=== PATIENT | female | born 1985 | race Caucasian/White ===

== ENCOUNTER 2021-05-13 14:45 | Emergency (ER) | payer SELFPAY ==
[2021-05-13] VITALS (8 sets, daily range): BP systolic 134–137; BP diastolic 77–81; PULSE 90–108; RESP 18; TEMP 37.1; O2SAT 90–98
[2021-05-13 15:21] LABS: Add Manual Diff / Slide Review NO; Basophils Absolute Auto 0 /uL (0-100); Basophils Percent Auto 0.2 % (0-2); Eosinophils Absolute Auto 300 /uL (0-450); Eosinophils Percent Auto 3.2 % (2-4); Hematocrit 48.7 % (36-46); Hemoglobin 16.6 g/dL (12.0-16.0); Lymphocytes Absolute Auto 3300 /uL (1100-4500); Lymphocytes Percent Auto 32.5 % (25-40); Mean Corpuscular HGB Conc 34.1 % (30-36); Mean Corpuscular Hemoglobin 30.6 PG (26-34); Mean Corpuscular Volume 89.8 fL (80-100); Monocytes Absolute Auto 600 /uL (0-900); Monocytes Percent Auto 6.2 % (3-14); Neutrophils Absolute Auto 5900 /uL (1500-7000); Neutrophils Percent Auto 57.9 % (50-75); Platelet Count 315 X10^3/uL (150-400); Red Blood Cell Count 5.42 X10^6/uL (4.0-5.2); Red Cell Distribution Width 13.1 % (11.6-14.8); White Blood Cell Count 10.3 X10^3/uL (4.5-11.0)
[2021-05-13 15:26] LABS: Alanine Aminotransferase 56 IU/L (<35); Albumin 4.3 g/dL (3.5-5.0); Albumin Globulin Ratio 1.4 (1.0-2.8); Alkaline Phosphatase 99 U/L (38-126); Aspartate Aminotransferase 52 IU/L (14-36); BUN Creatinine Ratio 11.8 (6-22); Bilirubin Total 0.4 mg/dL (0.2-1.3); Blood Urea Nitrogen 13 mg/dL (7-17); Calcium 9.8 mg/dL (8.4-10.2); Carbon Dioxide 28 mmol/L (22-32); Chloride 105 mmol/L (98-107); Estimated Glomerular Filt Rate 56.5 mL/min (>60); Glucose 89 mg/dL (70-100); HEMOLYSIS < 15 (0-50); Lipase 84 U/L (23-300); Potassium 4.3 mmol/L (3.4-5.1); Sodium 139 mmol/L (137-145); Total Protein 7.3 g/dL (6.3-8.2)
[2021-05-13 18:37] LABS: RBC Urine None Seen (0-5/HPF)
[2021-05-13 18:40] LABS: Bilirubin Urine UA NEGATIVE (NEGATIVE); Color Urine UA YELLOW; Glucose Urine UA NEGATIVE (Negative); Ketones Urine UA NEGATIVE (NEGATIVE); Leukocyte Esterase Urine UA NEGATIVE (NEGATIVE); Nitrite Urine UA POSITIVE (Negative); Occult Blood Urine UA NEGATIVE (Negative); Protein Urine UA NEGATIVE (Negative); Urobilinogen Urine UA 0.2 E.U./dL (0.2)
[2021-05-13 18:51] LABS: Appearance Urine UA Slightly Cloudy; Bacteria Urine Many (>30); Squamous Epithelial Cell Urine 1-5 /HPF (0-5/HPF); WBC Urine 1-5/HPF (0-5/HPF); pH Urine UA 6.5 (4.5-8.0)
[2021-05-13 18:52] LABS: Culture Indicated Urine Specimen Cultured
--- NOTE | 2021-05-13 19:30 | DI.RAD.S_ITS ---
PROCEDURE: XR CHEST 2V INDICATIONS: pleuritic/rib pain TECHNIQUE: 2 views of the chest were acquired. COMPARISON: None. FINDINGS: Surgical changes and devices: None. Lungs and pleura: There is mild elevation of the left hemidiaphragm. No focal consolidation. No pleural effusions or pneumothorax. Mediastinum: Mediastinal contours are normal. Heart size is normal. Bones and chest wall: No displaced rib fracture identified. No suspicious bony abnormalities. Soft tissues appear unremarkable. IMPRESSION: 1. No definite acute cardiopulmonary disease. Dictated by: Cody Vences M.D. on 05/13/2021 at 20:22 Approved by: Cody Vences M.D. on 05/13/2021 at 20:23
--- NOTE | 2021-05-13 20:19 | ED.ABDPAIN ---
HPI - Abdominal Pain General Chief Complaint: Abdominal Pain Stated Complaint: around back of waist hurts Time Seen by Provider: 05/13/21 20:18 Source: patient and family Mode of arrival: Ambulatory Limitations: no limitations History of Present Illness HPI narrative: This is a 35-year-old female who denies any past medical history. Patient has had cholecystectomy, appendectomy as well as tonsils and adenoids removed in the past. Patient states she has had increasing back/flank pain over the last 1-2 days. Patient states she does have 2, 50 lb puppies which she has been her angling him picking up frequently. She does not recall any exact injury. She does not have any radiation, no bowel or bladder symptoms. She has not had back issues in the past. She denies any fevers or chills. She denies any shortness of breath. Patient has had some mild nausea but no vomiting. She states her pain starts in her back and radiates about the mid lateral area. She denies any diarrhea constipation. She denies any urinary symptoms such as frequency dysuria urgency. No black or bloody stools. No vaginal bleeding or discharge. Patient has not taken any medications. She does have an allergy to penicillin and cephalosporins and states she gets hives and sometimes her throat feels tight and itchy. She has not established with a primary care physician yet she has recently moved here from [place]. Related Data Previous Rx's Medication Instructions Recorded ciprofloxacin HCl 500 mg tablet 500 mg PO Q12H #20 tab 05/13/21 meloxicam 7.5 mg tablet (Mobic) 7.5 mg PO BID #14 tab 05/13/21 ondansetron HCl 4 mg tablet 4 mg PO Q6H #5 tab 05/13/21 (Zofran) Allergies Allergy/AdvReac Type Severity Reaction Status Date / Time Penicillins Allergy Verified 05/13/21 14:56 Review of Systems Review of Systems ROS Unobtainable: All systems reviewed & are unremarkable except as noted in HPI and below Patient History Social History Smoking Status: Current every day smoker Smoking Status: Current every day smoker tobacco type: cigarettes Exam Narrative Exam Narrative: GENERAL: Alert and oriented x three, female in mild distress. HEENT: Head normocephalic, atraumatic, EOMI, pupils reactive, face symmetric, moist mucous membranes NECK: Supple, full range of motion CARDIOVASCULAR: Regular rate and rhythm without murmurs, rubs or gallops. RESPIRATORY: Breath sounds equal bilaterally, no wheezes rales or rhonchi. ABDOMEN: Soft, nontender. Normoactive bowel sounds all 4 quadrants. No guarding or rebound, rigidity, no mass : No CVA tenderness BACK: No cervical, thoracic or lumbar vertebral point tenderness. Patient has normal range of motion. Muscle strength is 5/5 in lower extremities, sensation intact bilaterally. EXTREMITIES: Normal range of motion, no clubbing or edema. Neurovascularly intact NEUROLOGICAL: Cranial nerves II through XII grossly intact. Moving all extremities SKIN: Warm, dry, no petechiae, no rashes or lesions. Initial Vital Signs Initial Vital Signs: Vital Signs Temperature 98.7 F 05/13/21 14:54 Pulse Rate 108 H 05/13/21 14:54 Respiratory Rate 18 05/13/21 14:54 Blood Pressure 137/77 05/13/21 14:54 Pulse Oximetry 98 05/13/21 14:54 Course Orders Ordered: Discontinued Medications Ciprofloxacin (Ciprofloxacin 250 Mg Tablet) 500 mg PO NOW ONE Stop: 05/13/21 20:32 Last Admin: 05/13/21 21:00 Dose: 500 mg Documented by: HOLA Ketorolac Tromethamine (Ketorolac 30 Mg/Ml Vial) 15 mg IV NOW ONE Stop: 05/13/21 20:32 Last Admin: 05/13/21 21:00 Dose: 15 mg Documented by: HOLA Ondansetron HCl (Ondansetron 4 Mg/2 Ml Inj) 4 mg IV NOW ONE Stop: 05/13/21 20:32 Last Admin: 05/13/21 21:00 Dose: 4 mg Documented by: HOLA Vital Signs Vital signs: Vital Signs - 8 hr 05/13/21 14:54 Temperature 98.7 F Pulse Rate 108 H Respiratory Rate 18 Blood Pressure 137/77 Pulse Oximetry 98 MDM - Abdominal Pain Lab Data Result diagrams: 05/13/21 15:05 05/13/21 15:05 Labs: Lab Results 05/13/21 05/13/21 05/13/21 Range/Units 15:05 15:05 15:05 WBC 10.3 (4.5-11.0) X10^3/uL RBC 5.42 H (4.0-5.2) X10^6/uL Hgb 16.6 H (12.0-16.0) g/dL Hct 48.7 H (36-46) % MCV 89.8 (80-100) fL MCH 30.6 (26-34) PG MCHC 34.1 (30-36) % RDW 13.1 (11.6-14.8) % Plt Count 315 (150-400) X10^3/uL Neut % (Auto) 57.9 (50-75) % Lymph % (Auto) 32.5 (25-40) % [place] % (Auto) 6.2 (3-14) % Eos % (Auto) 3.2 (2-4) % Baso % (Auto) 0.2 (0-2) % Neut # (Auto) 5900 (5576-0642) /uL Lymph # (Auto) 3300 (1565-2384) /uL Charlotte # (Auto) 600 (0-900) /uL Eos # (Auto) 300 (0-450) /uL Baso # (Auto) 0 (0-100) /uL Sodium 139 (137-145) mmol/L Potassium 4.3 (3.4-5.1) mmol/L Chloride 105 (98-107) mmol/L Carbon Dioxide 28 (22-32) mmol/L BUN 13 (7-17) mg/dL Creatinine 1.10 H (0.52-1.04) mg/dL Estimated GFR 56.5 L (>60) mL/min BUN/Creatinine Ratio 11.8 (6-22) Glucose 89 (70-100) mg/dL Calcium 9.8 (8.4-10.2) mg/dL Total Bilirubin 0.4 (0.2-1.3) mg/dL AST 52 H (14-36) IU/L ALT 56 H (<35) IU/L Alkaline Phosphatase 99 (38-126) U/L Total Protein 7.3 (6.3-8.2) g/dL Albumin 4.3 (3.5-5.0) g/dL Globulin 3.0 (1.7-4.1) g/dL Albumin/Globulin Ratio 1.4 (1.0-2.8) Lipase 84 (23-300) U/L Serum , Qual Negative (Negative) Urine Color Urine Appearance Urine pH (4.5-8.0) Ur Specific [place] (1.000-1.035) Urine Protein (Negative) Urine Glucose (UA) (Negative) g/dL Urine Ketones (NEGATIVE) Urine Occult Blood (Negative) Urine Nitrate (Negative) Urine Bilirubin (NEGATIVE) Urine Urobilinogen (0.2) E.U./dL Ur Leukocyte Esterase (NEGATIVE) Urine RBC (0-5/HPF) Urine WBC (0-5/HPF) Ur Squamous Epith Cells (0-5/HPF) Urine Bacteria (None) Ur Culture Indicated? 05/13/21 Range/Units 18:36 WBC (4.5-11.0) X10^3/uL RBC (4.0-5.2) X10^6/uL Hgb (12.0-16.0) g/dL Hct (36-46) % MCV (80-100) fL MCH (26-34) PG MCHC (30-36) % RDW (11.6-14.8) % Plt Count (150-400) X10^3/uL Neut % (Auto) (50-75) % Lymph % (Auto) (25-40) % Charlotte % (Auto) (3-14) % Eos % (Auto) (2-4) % Baso % (Auto) (0-2) % Neut # (Auto) (1783-6295) /uL Lymph # (Auto) (2777-2526) /uL Charlotte # (Auto) (0-900) /uL Eos # (Auto) (0-450) /uL Baso # (Auto) (0-100) /uL Sodium (137-145) mmol/L Potassium (3.4-5.1) mmol/L Chloride (98-107) mmol/L Carbon Dioxide (22-32) mmol/L BUN (7-17) mg/dL Creatinine (0.52-1.04) mg/dL Estimated GFR (>60) mL/min BUN/Creatinine Ratio (6-22) Glucose (70-100) mg/dL Calcium (8.4-10.2) mg/dL Total Bilirubin (0.2-1.3) mg/dL AST (14-36) IU/L ALT (<35) IU/L Alkaline Phosphatase (38-126) U/L Total Protein (6.3-8.2) g/dL Albumin (3.5-5.0) g/dL Globulin (1.7-4.1) g/dL Albumin/Globulin Ratio (1.0-2.8) Lipase (23-300) U/L Serum , Qual (Negative) Urine Color Yellow Urine Appearance Slightly cloudy Urine pH 6.5 (4.5-8.0) Ur Specific [place] 1.010 (1.000-1.035) Urine Protein Negative (Negative) Urine Glucose (UA) Negative (Negative) g/dL Urine Ketones Negative (NEGATIVE) Urine Occult Blood Negative (Negative) Urine Nitrate Positive H (Negative) Urine Bilirubin Negative (NEGATIVE) Urine Urobilinogen 0.2 (0.2) E.U./dL Ur Leukocyte Esterase Negative (NEGATIVE) Urine RBC None seen (0-5/HPF) Urine WBC 1-5/hpf (0-5/HPF) Ur Squamous Epith Cells 1-5 /hpf (0-5/HPF) Urine Bacteria Many (>30) H (None) Ur Culture Indicated? Specimen cultured Imaging Data Chest x-ray: Radiologist's Impression: Steffany Cisneros 35 F [address] [id number] ReportSigned Patient: Kenton Cisneros#: [id number]: 1985Acct:[id number]/Sex: 35 / FDate of Service: 05/13/21Loc: EDAccession Number: [id number] Procedure: XR chest 2V Ordering Provider: Rayne Freeman D.O. PROCEDURE: XR CHEST 2V INDICATIONS: pleuritic/rib pain TECHNIQUE: 2 views of the chest were acquired. COMPARISON: None. FINDINGS: Surgical changes and devices: None. Lungs and pleura: There is mild elevation of the left hemidiaphragm. No focal consolidation. No pleural effusions or pneumothorax. Mediastinum: Mediastinal contours are normal. Heart size is normal. Bones and chest wall: No displaced rib fracture identified. No suspicious bony abnormalities. Soft tissues appear unremarkable. IMPRESSION: 1. No definite acute cardiopulmonary disease. Dictated by: Cody Vences M.D. on 05/13/2021 at 20:22 Approved by: Cody Vences M.D. on 05/13/2021 at 20:23 [facility] Narrative Medical decision making narrative: Patient comes in with complaint of back discomfort coming around the sides. Patient has nitrate positive urine could have pyelonephritis but she is also been handling to fairly heavy dogs regularly. Patient has not had any urinary symptoms, no fevers or chills but dog covered with antibiotics. Patient was offered a prescription for some pain medication. She does not have any red flag symptoms in terms of back pain. Labs do show an elevated creatinine, AST ALT are slightly elevated. Patient does not have any anterior abdominal pain on evaluation. Discharge Plan Departure Patient Disposition: Home Clinical Impression: Pyelonephritis Instructions: DI for Kidney Infection Activity Restrictions/Additional Instructions: Follow-up in the next 2-3 days for recheck if you are not having any improvement in her symptoms. Your urinalysis today is very suspicious for infection I suspect you have either UTI or the beginnings of pyelonephritis which is a kidney infection. Take antibiotics until completely gone. You may take Zofran 1 tablet every 4 hours as needed for nausea. Take pain medication as prescribed. Prescription sent to [facility] in [place] Please return for fevers, lightheadedness or passing out, new or worsening chest pain or shortness of breath, persistent vomiting, black or bloody stools, worsening abdominal, back or flank pain, inability urinate or other new or concerning symptoms. Prescriptions: New ondansetron HCl [Zofran] 4 mg tablet 4 mg PO Q6H Qty: 5 RF: 0 meloxicam [Mobic] 7.5 mg tablet 7.5 mg PO BID Qty: 14 RF: 0 ciprofloxacin HCl 500 mg tablet 500 mg PO Q12H Qty: 20 RF: 0
[2021-05-13 20:37] LABS: Pregnancy Test Serum,Qual Negative (Negative)
[2021-05-13] MEDS: ONDANSETRON 4 MG/2 ML INJ IV (21:00)
[2021-05-13] MEDS: CIPROFLOXACIN 250 MG TABLET 500 MG PO (21:00)
[2021-05-13] MEDS: KETOROLAC 30 MG/ML VIAL 15 MG IV (21:00)
== END 2021-05-13 21:11 | disposition home or self-care (01) ==
PROVIDERS: Emergency Medicine; Emergency Provider Emergency Medicine
DX: N12 Tubulo-interstitial nephritis, not specified as acute or chronic (principal); R07.81 Pleurodynia
CPT/HCPCS: 36415; 71046; 80053; 81001; 83690; 84703; 85025; 87077; 87086; 87186; 96374; 96375; 99284; J1885; J2405

== ENCOUNTER 2021-05-28 14:18 | Emergency (ER) | payer OTHER, MEDICAID, SELFPAY ==
[2021-05-28 14:26] VITALS: BP 112/59; PULSE 102; RESP 20; TEMP 36.6; O2SAT 95
--- NOTE | 2021-05-28 14:29 | DI.RAD.S_ITS ---
PROCEDURE: XR KNEE LT 3V INDICATIONS: twisting injury TECHNIQUE: Three views. COMPARISON: None. FINDINGS: Bones: No fractures or dislocations. No suspicious bony lesions. Moderate knee joint space narrowing. No effusion or loose body. Soft tissues: No joint effusion. No suspicious soft tissue calcifications. IMPRESSION: Internal derangement may be present but no fracture is seen. Dictated by: Wilber Saucedo M.D. on 05/28/2021 at 14:59 Approved by: Wilber Saucedo M.D. on 05/28/2021 at 15:06
--- NOTE | 2021-05-28 17:51 | ED.LOWEXIN ---
HPI - Extremity Injury (Lower) <Keo Pierce PA-C - Last Filed: 05/29/21 18:47> General Chief Complaint: Extremity Injury, Lower Stated Complaint: left knee pain Time Seen by Provider: 05/28/21 17:49 Source: patient Mode of arrival: Wheelchair History of Present Illness HPI Narrative: Steffany presents with chief complaint of left knee pain. She reports that this started yesterday while she was walking in the yard. She stepped wrong in a hole in her yd that her dog back and had initial minimal pain. Her pain was manageable but then later on in the day she stepped off a curb while at the grocery store and felt a pop and had pain again. She denies any previous injuries to the area. She reports pain is made worse with walking on the leg. Nothing seems to make it better. She denies any significant chest pain, shortness of breath, fever or any other acute concerns or complaints at this time. Related Data Previous Rx's Medication Instructions Recorded ciprofloxacin HCl 500 mg tablet 500 mg PO Q12H #20 tab 05/13/21 meloxicam 7.5 mg tablet (Mobic) 7.5 mg PO BID #14 tab 05/13/21 ondansetron HCl 4 mg tablet 4 mg PO Q6H #5 tab 05/13/21 (Zofran) Allergies Allergy/AdvReac Type Severity Reaction Status Date / Time Penicillins Allergy Verified 05/13/21 14:56 Review of Systems <Keo Pierce PA-C - Last Filed: 05/29/21 18:47> Review of Systems Narrative: As per HPI Patient History <Keo Pierce PA-C - Last Filed: 05/29/21 18:47> Social History Smoking Status: Current every day smoker Smoking Status: Current every day smoker tobacco type: cigarettes Exam <Keo Pierce PA-C - Last Filed: 05/29/21 18:47> Narrative Exam Narrative: Exam Narrative: Const General: cooperative, healthy appearing, comfortable, no acute distress, well developed and well groomed Nutritional Appearance: average body habitus Orientation: alert and oriented x3 HENMT Head: normal to inspection and atraumatic Ears: hearing grossly normal bilaterally Nose: external nose normal and nares normal Face and sinus: normal facial exam Neck Neck: normal visual inspection and supple Resp Effort & Inspection: normal respiratory effort, able to speak in complete sentences, no audible wheezes, not labored, no nasal flaring and no respiratory distress Neuro General: alert, oriented x3, gait normal, tone normal and moves all extremities Cognition: normal cognition Speech: speech normal Extremities Lower extremities exposed. Grossly normal in appearance with no obvious swelling, ecchymosis, erythema. No calf tenderness. Negative Homans sign. Mild lateral joint line tenderness to the left knee. Full range of motion. Full strength. Distal sensation is intact. Pedal pulses are equal bilaterally. Psych Appearance: grossly normal and well kempt Mental Status: mental status grossly normal Speech and Movement: speech and movement normal Mood: congruent mood Affect: normal affect Initial Vital Signs Initial Vital Signs: Vital Signs Temperature 97.8 F 05/28/21 14:26 Pulse Rate 102 H 05/28/21 14:26 Respiratory Rate 20 05/28/21 14:26 Blood Pressure 112/59 L 05/28/21 14:26 Pulse Oximetry 95 05/28/21 14:26 <DO Samuel Yan Last Filed: 06/01/21 02:50> Initial Vital Signs Initial Vital Signs: Vital Signs Temperature 97.8 F 05/28/21 14:26 Pulse Rate 102 H 05/28/21 14:26 Respiratory Rate 20 05/28/21 14:26 Blood Pressure 112/59 L 05/28/21 14:26 Pulse Oximetry 95 05/28/21 14:26 Course <Keo Pierce PA-C - Last Filed: 05/29/21 18:47> Orders Ordered: Discontinued Medications Ketorolac Tromethamine (Ketorolac 30 Mg/Ml Vial) 30 mg IM NOW ONE Stop: 05/28/21 18:00 Last Admin: 05/28/21 18:37 Dose: 30 mg Documented by: HIRAM Vital Signs Vital signs: Vital Signs - 8 hr 05/28/21 14:26 Temperature 97.8 F Pulse Rate 102 H Respiratory Rate 20 Blood Pressure 112/59 L Pulse Oximetry 95 <DO Samuel Yan Last Filed: 06/01/21 02:50> Orders Ordered: Discontinued Medications Ketorolac Tromethamine (Ketorolac 30 Mg/Ml Vial) 30 mg IM NOW ONE Stop: 05/28/21 18:00 Last Admin: 05/28/21 18:37 Dose: 30 mg Documented by: HIRAM Vital Signs Vital signs: Vital Signs - 8 hr 05/28/21 14:26 Temperature 97.8 F Pulse Rate 102 H Respiratory Rate 20 Blood Pressure 112/59 L Pulse Oximetry 95 MDM - Extremity Injury (Lower) <Keo Pierce PA-C - Last Filed: 05/29/21 18:47> [facility] Narrative Medical decision making narrative: Differential diagnosis considered includes fracture, patellar dislocation, sprain, meniscus injury, Achilles rupture. Patient's physical examination is essentially normal. There is no obvious ecchymosis, swelling or erythema. She has intact range of motion. No obvious bony tenderness and x-ray does not suggest any fracture or dislocation. No significant joint effusion was noted on x-ray. She does not have any calf tenderness, pedal edema, and she has negative Homans sign. We will treat as a sprain/strain and have her follow-up with PCP if symptoms fail to improve as expected. Return precautions were discussed. Patient verbalizes understanding and agrees to plan and has no further concerns at this time. Thank you A [id number] system was used with the dictation of this note. Please disregard any spelling or grammatical errors. Discharge Plan Departure Patient Disposition: Home Clinical Impression: Acute knee pain Instructions: DI for Knee Sprain Activity Restrictions/Additional Instructions: It was nice to meet you this evening. Please apply ice, do light range of motion activity as tolerated, elevate, and use nonsteroidal anti-inflammatories or acetaminophen as needed for pain management. Please follow-up with your primary care provider or the clinic if you are still having significant symptoms in 10-14 days. At that time a referral to physical therapy or an MRI may be warranted. Thank you Keo Pierce PAC Prescriptions: No Action ondansetron HCl [Zofran] 4 mg tablet 4 mg PO Q6H Qty: 5 RF: 0 meloxicam [Mobic] 7.5 mg tablet 7.5 mg PO BID Qty: 14 RF: 0 ciprofloxacin HCl 500 mg tablet 500 mg PO Q12H Qty: 20 RF: 0 <Rayne Freeman DO - Last Filed: 06/01/21 02:50> Cosign ED Attending Cosignature Attestation: I was immediately available in the department for consultation. Documentation has been reviewed.
[2021-05-28 18:20] VITALS: BP 130/61; PULSE 87; O2SAT 98
[2021-05-28] MEDS: KETOROLAC 30 MG/ML VIAL IM (18:37)
== END 2021-05-28 18:51 | disposition home or self-care (01) ==
PROVIDERS: Emergency Provider Physician Assistant
DX: M25.562 Pain in left knee (principal)
CPT/HCPCS: 73562; 96372; 99283; 99284; J1885

== ENCOUNTER 2021-06-09 12:46 | Emergency (ER) | payer OTHER, MEDICAID, SELFPAY ==
[2021-06-09 13:20] VITALS: BP 153/86; PULSE 94; RESP 17; TEMP 36.6; O2SAT 98; BMI 50.8
--- NOTE | 2021-06-09 13:20 | DI.RAD.S_ITS ---
PROCEDURE: XR CHEST 2V INDICATIONS: cough TECHNIQUE: 2 views of the chest were acquired. COMPARISON: [facility], CR, XR CHEST 2V, 05/13/2021, 19:33. FINDINGS: Surgical changes and devices: None. Lungs and pleura: Scattered subsegmental atelectasis and/or scarring. No focal consolidation. Mediastinum: Mediastinal contours are normal. Heart size is normal. Bones and chest wall: No suspicious bony abnormalities. Soft tissues appear unremarkable. IMPRESSION: Scattered atelectatic opacities. No definite interval change since 05/13/21. Dictated by: Saman Gunter M.D. on 06/09/2021 at 13:42 Approved by: Saman Gunter M.D. on 06/09/2021 at 13:47
[2021-06-09 14:07] LABS: COVID19 -Nasal RAPID Negative (Negative)
[2021-06-09 15:03] VITALS: BP 130/70; PULSE 90; TEMP 36.3; O2SAT 98
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
== END 2021-06-09 15:20 | disposition home or self-care (01) ==
PROVIDERS: Emergency Provider Emergency Medicine
DX: J40 Bronchitis, not specified as acute or chronic (principal); R09.81 Nasal congestion; Z20.822 Contact with and (suspected) exposure to COVID-19
CPT/HCPCS: 71046; 87635; 99282; 99283; C9803

== ENCOUNTER 2021-06-30 16:21 | Emergency (ER) | payer OTHER, MEDICAID, SELFPAY ==
[2021-06-30 16:40] VITALS: BP 126/56; PULSE 92; RESP 16; TEMP 36.8; O2SAT 97
--- NOTE | 2021-06-30 16:57 | DI.RAD.S_ITS ---
PROCEDURE: XR CHEST 2V INDICATIONS: flank pain TECHNIQUE: 2 views of the chest were acquired. COMPARISON: [facility], CR, XR CHEST 2V, 06/09/2021, 13:24. FINDINGS: Surgical changes and devices: None. Lungs and pleura: Lungs are clear. No pleural effusions or pneumothorax. Mediastinum: Mediastinal contours are normal. Heart size is normal. Bones and chest wall: No suspicious bony abnormalities. Premature bony degenerative changes are seen. Accentuated thoracic kyphosis is seen. Soft tissues appear unremarkable. IMPRESSION: No acute cardiopulmonary process is seen. Dictated by: Benny Mcguire M.D. on 06/30/2021 at 16:37 Approved by: Benny Mcguire M.D. on 06/30/2021 at 16:38
[2021-06-30 17:06] LABS: Add Manual Diff / Slide Review NO; Basophils Absolute Auto 200 /uL (0-100); Basophils Percent Auto 1.3 % (0-2); Eosinophils Absolute Auto 400 /uL (0-450); Eosinophils Percent Auto 3.8 % (2-4); Hematocrit 45.7 % (36-46); Hemoglobin 15.4 g/dL (12.0-16.0); Lymphocytes Absolute Auto 3200 /uL (1100-4500); Lymphocytes Percent Auto 28.8 % (25-40); Mean Corpuscular HGB Conc 33.8 % (30-36); Mean Corpuscular Hemoglobin 30.1 PG (26-34); Mean Corpuscular Volume 89.2 fL (80-100); Monocytes Absolute Auto 800 /uL (0-900); Monocytes Percent Auto 7.4 % (3-14); Neutrophils Absolute Auto 6600 /uL (1500-7000); Neutrophils Percent Auto 58.7 % (50-75); Platelet Count 335 X10^3/uL (150-400); Red Blood Cell Count 5.13 X10^6/uL (4.0-5.2); Red Cell Distribution Width 13.3 % (11.6-14.8); White Blood Cell Count 11.2 X10^3/uL (4.5-11.0)
[2021-06-30 17:08] LABS: Alanine Aminotransferase 34 IU/L (<35); Albumin 4.1 g/dL (3.5-5.0); Albumin Globulin Ratio 1.3 (1.0-2.8); Alkaline Phosphatase 95 U/L (38-126); Aspartate Aminotransferase 31 IU/L (14-36); BUN Creatinine Ratio 12.7 (6-22); Bilirubin Total 0.4 mg/dL (0.2-1.3); Blood Urea Nitrogen 13 mg/dL (7-17); Calcium 9.7 mg/dL (8.4-10.2); Carbon Dioxide 28 mmol/L (22-32); Chloride 105 mmol/L (98-107); Estimated Glomerular Filt Rate > 60.0 mL/min (>60); Globulin 3.1 g/dL (1.7-4.1); Glucose 89 mg/dL (70-100); HEMOLYSIS < 15 (0-50); Lipase 71 U/L (23-300); Potassium 3.8 mmol/L (3.4-5.1); Sodium 139 mmol/L (137-145); Total Protein 7.2 g/dL (6.3-8.2)
[2021-06-30 17:36] LABS: RBC Urine None Seen (0-5/HPF)
[2021-06-30 17:43] LABS: Squamous Epithelial Cell Urine 1-5 /HPF (0-5/HPF); WBC Urine 0-1/HPF (0-5/HPF)
[2021-06-30 17:44] LABS: Bacteria Urine Occasional (0-1); Culture Indicated Urine Cult Not Indicated
== END 2021-06-30 20:06 | disposition left against medical advice (07) ==
PROVIDERS: Emergency Medicine; Emergency Provider Emergency Medicine
DX: R10.9 Unspecified abdominal pain (principal); R11.0 Nausea
CPT/HCPCS: 71046; 80053; 81003; 81015; 81025; 83690; 85025; 99283

== ENCOUNTER 2021-07-12 14:28 | Emergency (ER) | payer OTHER, MEDICAID, SELFPAY ==
[2021-07-12 14:30] VITALS: BP 124/67; PULSE 89; RESP 16; TEMP 36.6; O2SAT 96; BMI 51.7
--- NOTE | 2021-07-12 14:40 | ED_ITS ---
HPI - General Adult General Chief complaint: Upper Respiratory Symptoms Stated complaint: BODY ACHES, COUGH, HEADACHE Time Seen by Provider: 07/12/21 14:31 Source: patient Mode of arrival: Ambulatory History of Present Illness HPI narrative: Patient is a 36-year-old female who is immunized against COVID-19 who has had approximately 10 days of sinus congestion and cough and a sore throat and body aches and a slight headache. No fevers. Has tried some [id number] medications without much improvement. Related Data Home Medications Medication Instructions Recorded Confirmed citalopram 20 mg tablet 20 mg PO DAILY 06/09/21 06/09/21 lamotrigine 200 mg tablet 200 mg PO DAILY 06/09/21 06/09/21 aripiprazole 2 mg tablet (Abilify) 2 mg PO DAILY 07/12/21 07/12/21 buspirone 5 mg tablet 5 mg PO BID 07/12/21 07/12/21 cyclobenzaprine 10 mg tablet 10 mg PO DAILY 07/12/21 07/12/21 levonorgestrel 14 mcg/24 hrs (3 INTRAUTERINE 07/12/21 yrs) 13.5 mg intrauterine device (Sachi) Allergies Allergy/AdvReac Type Severity Reaction Status Date / Time amoxicillin Allergy Severe Anaphylaxis Verified 07/12/21 14:54 Penicillins Allergy Severe Anaphylaxis Verified 07/12/21 14:54 Review of Systems Constitutional Constitutional: Reports fatigue, Denies fever(s), Reports headache(s) and Reports lethargy Eyes Eyes: Reports as per HPI ENT Ears, Nose, Mouth, and Throat: Reports headache(s), Reports sinus pressure and Reports sore throat Cardiovascular Cardiovascular: Reports as per HPI and Reports system reviewed and no additional complaints, except as documented Respiratory Respiratory: Reports cough Gastrointestinal Gastrointestinal: Reports system reviewed and no additional complaints, except as documented Musculoskeletal Musculoskeletal: Reports system reviewed and no additional complaints, except as documented Integumentary/Breasts Skin/Breast: Reports system reviewed and no additional complaints, except as documented Neurologic Neurologic: Reports headache(s) Endocrine Endocrine: Reports fatigue Hematologic/Lymphatic On Anticoagulants: No Patient History Medical History Acute knee pain Social History Smoking Status: Current every day smoker Smoking Status: Current every day smoker tobacco type: cigarettes Substance Use Type: marijuana Exam Initial Vital Signs Initial Vital Signs: Vital Signs Temperature 97.9 F 07/12/21 14:30 Pulse Rate 89 07/12/21 14:30 Respiratory Rate 16 07/12/21 14:30 Blood Pressure 124/67 07/12/21 14:30 Pulse Oximetry 96 07/12/21 14:30 Const General: cooperative and comfortable HENMT Head: normal to inspection and normocephalic Eyes General: appearance normal, both eyes and all related structures Resp Effort & Inspection: normal respiratory effort Auscultation: clear to auscultation bilaterally Cardio Rate: regular rate GI Inspection: normal to inspection Skin General: no rashes or lesions noted Neuro General: patient alert, patient awake, patient oriented x3 and moves all extremities Extrem General: normal to inspection and capillary refill normal Psych Appearance: grossly normal and well kempt Course Orders Ordered: ED Orders 07/12/21 14:47 COVID19 -Nasal swab/Pre-Proc Stat Vital Signs Vital signs: Vital Signs - 8 hr 07/12/21 14:30 Temperature 97.9 F Pulse Rate 89 Respiratory Rate 16 Blood Pressure 124/67 Pulse Oximetry 96 Medical Decision Making Lab Data Labs: Lab Results 07/12/21 Range/Units 14:47 SARS-CoV-2 (PCR) Negative (Negative) MDM Narrative Medical decision making narrative: Patient's lungs are clear. Her COVID is negative. She is afebrile. Not hypoxic. No indication for chest x-ray. I did discuss with her her symptoms. The individual whom with she lives is also here in the emergency department and he tested positive for COVID-19. They were in the same room together when we had the discussion about his positive result. I did discuss with her her risks of COVID-19. We did discuss quarantine herself. Discussed return precautions and follow-up instructions. She expressed underst anding and agreement. Discharge Plan Departure Patient Disposition: Home Clinical Impression: Upper respiratory infection Instructions: Can COVID-19 be prevented? Activity Restrictions/Additional Instructions: Your COVID-19 test today was negative. This is most likely because you are immunized. However given the fact that you are in close proximity with someone who is positive you do need to quarantine yourself for the next 14 days. Contact her primary doctor for follow-up. Return to the emergency department for any new or worsening symptoms Prescriptions: No Action cyclobenzaprine 10 mg tablet 10 mg PO DAILY RF: 0 buspirone 5 mg tablet 5 mg PO BID RF: 0 aripiprazole [Abilify] 2 mg tablet 2 mg PO DAILY RF: 0 Sachi 14 mcg/24 hrs (3 yrs) 13.5 mg intrauterine device INTRAUTERINE RF: 0 lamotrigine 200 mg tablet 200 mg PO DAILY RF: 0 citalopram 20 mg tablet 20 mg PO DAILY RF: 0
[2021-07-12 15:09] LABS: COVID19 -Nasal RAPID Negative (Negative)
== END 2021-07-12 15:25 | disposition home or self-care (01) ==
PROVIDERS: Emergency Provider Emergency Medicine
DX: J06.9 Acute upper respiratory infection, unspecified (principal); Z20.822 Contact with and (suspected) exposure to COVID-19
CPT/HCPCS: 87635; 99281; 99282; C9803

== ENCOUNTER 2021-10-16 09:17 | Emergency (ER) | payer OTHER, MEDICAID, SELFPAY ==
[2021-10-16 09:26] VITALS: BP 134/77; PULSE 100; RESP 20; TEMP 36.4; O2SAT 100; BMI 54.1
--- NOTE | 2021-10-16 09:33 | ED.UPPEXIN ---
HPI - Extremity Injury (Upper) General Chief Complaint: Extremity Injury, Upper Stated Complaint: Shoulder/side pain,felt popping Time Seen by Provider: 10/16/21 09:24 Source: patient Mode of arrival: Ambulatory History of Present Illness HPI narrative: 36-year-old female D smoker presents with a chief complaint of some right-sided rib pain for the past few days. She states that she was on the ground reaching forward with her right arm into a large dog crate to clean that out when she felt a pop in 1 of her right-sided ribs. She states that it seems to come and go but largely is worse when she moves and improves with rest. She denies any traumatic her direct impact. SHe's had no fever or chills. She denies SOB. Related Data Home Medications Medication Instructions Recorded Confirmed citalopram 20 mg tablet 20 mg PO DAILY 06/09/21 06/09/21 lamotrigine 200 mg tablet 200 mg PO DAILY 06/09/21 06/09/21 aripiprazole 2 mg tablet (Abilify) 2 mg PO DAILY 07/12/21 07/12/21 buspirone 5 mg tablet 5 mg PO BID 07/12/21 07/12/21 cyclobenzaprine 10 mg tablet 10 mg PO DAILY 07/12/21 07/12/21 levonorgestrel 14 mcg/24 hrs (3 INTRAUTERINE 07/12/21 yrs) 13.5 mg intrauterine device (Sachi) Previous Rx's Medication Instructions Recorded cyclobenzaprine 10 mg tablet 10 mg PO TID PRN #14 tab 10/16/21 ketorolac 10 mg tablet 10 mg PO Q6H PRN #14 tab 10/16/21 Allergies Allergy/AdvReac Type Severity Reaction Status Date / Time amoxicillin Allergy Severe Anaphylaxis Verified 07/12/21 14:54 Penicillins Allergy Severe Anaphylaxis Verified 07/12/21 14:54 Review of Systems Review of Systems Narrative: GENERAL: Denies chills, fatigue, malaise, fever, sweats. HEENT: Denies sinus pain, ear pain, sore throat, difficulty swallowing, dizziness. RESPIRATORY: Denies dyspnea, cough, wheezing, hemoptysis, sputum. CARDIOVASCULAR: Denies chest pain, palpitations, orthopnea, edema, GASTROINTESTINAL: Denies nausea, vomiting, abdominal pain, diarrhea, constipation, melena. : Denies dysuria, frequency, incontinence, hematuria, urinary retention. MUSCULOSKELETAL: See HPI SKIN: Denies rash, skin lesions, or other NEUROLOGIC: Denies weakness, headache, numbness, change in speech, confusion, seizures, incoordination. PSYCHIATRIC: No concerning psychosocial issues. 12 point review of systems is negative except for those stated above Patient History Medical History Acute knee pain Social History Smoking Status: Current every day smoker Smoking Status: Current every day smoker tobacco type: cigarettes Substance Use Type: marijuana Exam Narrative Exam Narrative: GEN: AOx3 and in mild distress EYES: Pupils are equal, round, and reactive to light and accommodation. Extraoccular muscles are intact bilaterally. There is no subconjunctival hemorrhage or exudate. CHEST: Lungs are clear to auscultation bilaterally and free of wheezes, rales, or rhonchi. Heart rate is regular rhythm, there are no murmurs, clicks, rubs, or gallops. Right lateral ribs tender to palpation, no subcu emphysema, no clicking ABD: Abdomen is soft and nontender. There is no guarding or rebound. Bowel sounds are normal in all 4 quadrants. There is no mass or organomegaly. EXT: Full painless ROM of all extremities with no loss of sensation or strength. SKIN: Warm, pink, and dry. No erythema or rash Initial Vital Signs Initial Vital Signs: Vital Signs Temperature 97.6 F 10/16/21 09:26 Pulse Rate 100 H 10/16/21 09:26 Respiratory Rate 20 10/16/21 09:26 Blood Pressure 134/77 10/16/21 09:26 Pulse Oximetry 100 10/16/21 09:26 Procedures Orthopedic Splinting/Casting Injury #1: Side: right Upper Extremity Injury Location: shoulder Upper Extremity Immobilizer: sling/shoulder immobilizer Course Vital Signs Vital signs: Vital Signs - 8 hr 10/16/21 09:26 Temperature 97.6 F Pulse Rate 100 H Respiratory Rate 20 Blood Pressure 134/77 Pulse Oximetry 100 MDM - Extremity Injury (Upper) MDM Narrative Medical decision making narrative: Patient with right-sided rib pain after reaching. No trauma. We did discuss imaging but agree that is unlikely to demonstrate findings that would change the plan. Patient given sling as it will help her splint and isolate motion of her upper extremity which seems to worsen the pain in her lateral ribs. She is able to reach with her right hand to her left shoulder and move it and a ?chicken wing ?motion without much trouble. Patient given return precautions and questions answered to her apparent satisfaction Discharge Plan Departure Patient Disposition: Home Clinical Impression: Rib pain on right side Instructions: DI for Costochondritis Activity Restrictions/Additional Instructions: *You have been diagnosed with [Right-sided rib pain and likely muscle spasm ] *What to do: *Please continue to take your regular medications as directed. [ x] New medication prescriptions sent to your pharmacy: [[facility] in [place] ] *Please follow up with your primary care provider in 2-3 days, call for an appointment. Let them know you were seen in the Emergency Department and that we ask that you be seen in follow up. We will electronically transmit a record of today's note if your PCP is in our system *If you do not have a primary care provider please contact the [facility] Resource line at [phone]. They will ask some questions about your medical history and help get you set up with a doctor in the community. *Return to Emergency Department if you should have any new, worsening or concerning symptoms, such as [fever greater than 101 F, shaking chills, worsening pain, persistent vomiting or other bothersome symptoms] Prescriptions: New cyclobenzaprine 10 mg tablet 10 mg PO TID PRN (Reason: muscle spasm) Qty: 14 0RF ketorolac 10 mg tablet 10 mg PO Q6H PRN (Reason: pain) Qty: 14 0RF No Action cyclobenzaprine 10 mg tablet 10 mg PO DAILY 0RF Label Comments: TAKE 1 TABLET BY MOUTH AT BEDTIME NEEDED buspirone 5 mg tablet 5 mg PO BID 0RF Label Comments: TAKE 1 TABLET BY MOUTH TWICE DAILY aripiprazole [Abilify] 2 mg tablet 2 mg PO DAILY 0RF Label Comments: Take 1 tablet by mouth at bedtime Sachi 14 mcg/24 hrs (3 yrs) 13.5 mg intrauterine device INTRAUTERINE 0RF lamotrigine 200 mg tablet 200 mg PO DAILY 0RF Label Comments: TAKE 1 TABLET BY MOUTH AT BEDTIME citalopram 20 mg tablet 20 mg PO DAILY 0RF Label Comments: TAKE 1 AND 1/2 TABLETS BY MOUTH EVERY DAY
--- NOTE | 2021-10-16 09:34 | PC.NURSE ---
right shoulder and rib area pain after cleaning her dog crate yesterday. Pt felt a pop x3 individual events while cleaning.
== END 2021-10-16 10:02 | disposition home or self-care (01) ==
PROVIDERS: Emergency Provider Emergency Medicine
DX: R07.81 Pleurodynia (principal); F17.210 Nicotine dependence, cigarettes, uncomplicated
CPT/HCPCS: 99281; 99282

== ENCOUNTER 2021-11-10 13:31 | Emergency (ER) | payer OTHER, SELFPAY ==
[2021-11-10 13:47] VITALS: BP 159/75; PULSE 122; RESP 18; TEMP 36.6; O2SAT 99; BMI 49.8
[2021-11-10 14:08] LABS: Add Manual Diff / Slide Review NO; Basophils Absolute Auto 100 /uL (0-100); Basophils Percent Auto 1.2 % (0-2); Eosinophils Absolute Auto 400 /uL (0-450); Eosinophils Percent Auto 4.1 % (2-4); Hematocrit 43.8 % (36-46); Lymphocytes Absolute Auto 2900 /uL (1100-4500); Lymphocytes Percent Auto 28.8 % (25-40); Mean Corpuscular HGB Conc 34.3 % (30-36); Mean Corpuscular Hemoglobin 30.3 PG (26-34); Mean Corpuscular Volume 88.5 fL (80-100); Monocytes Absolute Auto 800 /uL (0-900); Monocytes Percent Auto 7.6 % (3-14); Neutrophils Absolute Auto 5900 /uL (1500-7000); Neutrophils Percent Auto 58.3 % (50-75); Platelet Count 349 X10^3/uL (150-400); Red Blood Cell Count 4.95 X10^6/uL (4.0-5.2); Red Cell Distribution Width 13.1 % (11.6-14.8); White Blood Cell Count 10.2 X10^3/uL (4.5-11.0)
[2021-11-10 14:23] LABS: Alanine Aminotransferase 35 IU/L (<35); Albumin 4.1 g/dL (3.5-5.0); Albumin Globulin Ratio 1.4 (1.0-2.8); Alkaline Phosphatase 115 U/L (38-126); Aspartate Aminotransferase 32 IU/L (14-36); BUN Creatinine Ratio 9.1 (6-22); Bilirubin Total 0.2 mg/dL (0.2-1.3); Blood Urea Nitrogen 9 mg/dL (7-17); Calcium 9.6 mg/dL (8.4-10.2); Carbon Dioxide 29 mmol/L (22-32); Chloride 107 mmol/L (98-107); Estimated Glomerular Filt Rate > 60.0 mL/min (>60); Globulin 2.9 g/dL (1.7-4.1); Glucose 79 mg/dL (70-100); HEMOLYSIS < 15 (0-50); Potassium 3.9 mmol/L (3.4-5.1); Sodium 142 mmol/L (137-145)
[2021-11-10 17:58] VITALS: BP 163/71; PULSE 99; RESP 18; O2SAT 99
--- NOTE | 2021-11-10 19:09 | DI.CT.S_ITS ---
PROCEDURE: CT ABDOMEN PELVIS W CON INDICATIONS: ? abscess/cyst of mons pubis TECHNIQUE: After the administration of IV contrast, axial sections were acquired from the lung bases to the pubic symphysis. Coronal and sagittal reformats were performed. For radiation dose reduction, the following was used: automated exposure control, adjustment of mA and/or kV according to patient size. COMPARISON: None. FINDINGS: Image quality: Excellent. Lung bases: Mild left basilar atelectasis. Small hiatal hernia. Heart: Normal size. No pericardial effusion. ABDOMEN: Liver: Normal size. Mild hepatic steatosis. Gallbladder: Surgically removed Biliary ducts: Unremarkable. Pancreas: Unremarkable. Spleen: Normal size. There is a 2 cm splenule in the splenic hilum. Adrenal Glands: Unremarkable. Kidneys and Ureters: Unremarkable. Stomach and Bowel: Stomach, small bowel loops, and colon are normal in caliber. Appendix is absent. Peritoneum: No abnormal intraperitoneal fluid. No free air. Ventral Wall: Tiny fat containing umbilical hernia. Abdominal Nodes: No retroperitoneal or mesenteric adenopathy by size criteria. Vessels: Aorta and inferior vena cava are normal in size. PELVIS: Pelvic Organs: There is an IUD in uterus. A 2.3 x 3.2 cm cyst in the left ovary. Right ovary is not well seen. Bladder: Unremarkable. Pelvic Nodes: No enlarged lymph nodes. Miscellaneous: No inguinal hernias are seen. Bones: [id number] degenerative changes in lower thoracic spine and lumbar spine. IMPRESSION: 1. No acute abnormalities in abdomen or pelvis. 2. No abscess is identified in perineum. 3. A 2.3 x 3.2 cm cyst in the left ovary. Nonurgent follow-up pelvic ultrasound may be obtained if clinically indicated. 4. IUD in uterus. Dictated by: Charissa Lee M.D. on 11/10/2021 at 19:57 Approved by: Charissa Lee M.D. on 11/10/2021 at 20:02
[2021-11-10] MEDS: MORPHINE 4 MG/ML INJ IV (19:27)
--- NOTE | 2021-11-10 20:12 | ED.FEMALEGU ---
HPI - Female Genitourinary <Genna Encarnacion PA-C - Last Filed: 11/10/21 20:26> General Chief complaint: Urogenital-Female Stated complaint: poss cyst on top of vagina, red, inflamed Time Seen by Provider: 11/10/21 18:37 Source: patient Mode of arrival: Ambulatory History of Present Illness HPI Narrative: 36-year-old female with with some mental health problems including bipolar disorder presents to the ED with 5 days of a genital wound. Patient states that the wound started 5 days ago, and increasingly got bigger and more swollen, more painful. Patient endorses erythema but no discharge. Patient denies fever, chills, chest pain, shortness of breath, nausea, vomiting, abdominal pain. Related Data Home Medications Medication Instructions Recorded Confirmed citalopram 20 mg tablet 20 mg PO DAILY 06/09/21 06/09/21 lamotrigine 200 mg tablet 200 mg PO DAILY 06/09/21 06/09/21 aripiprazole 2 mg tablet (Abilify) 2 mg PO DAILY 07/12/21 07/12/21 buspirone 5 mg tablet 5 mg PO BID 07/12/21 07/12/21 cyclobenzaprine 10 mg tablet 10 mg PO DAILY 07/12/21 07/12/21 levonorgestrel 14 mcg/24 hrs (3 INTRAUTERINE 07/12/21 yrs) 13.5 mg intrauterine device (Sachi) Previous Rx's Medication Instructions Recorded cyclobenzaprine 10 mg tablet 10 mg PO TID PRN #14 tab 10/16/21 ketorolac 10 mg tablet 10 mg PO Q6H PRN #14 tab 10/16/21 cephalexin 500 mg capsule 500 mg PO TID 5 Days #15 cap 11/10/21 Allergies Allergy/AdvReac Type Severity Reaction Status Date / Time amoxicillin Allergy Severe Anaphylaxis Verified 11/10/21 13:47 Penicillins Allergy Severe Anaphylaxis Verified 11/10/21 13:47 Review of Systems <Genna Encarnacion PA-C - Last Filed: 11/10/21 20:26> Review of Systems ROS Unobtainable: All systems reviewed & are unremarkable except as noted in HPI and below Constitutional Constitutional: Denies chills, Denies fatigue, Denies fever(s), Denies frequent falls, Denies lethargy and Denies weakness Eyes Eyes: Denies change in vision, Denies eye discharge, Denies irritation and Denies loss of vision ENT Ears, Nose, Mouth, and Throat: Denies change in voice, Denies dizziness, Denies neck pain, Denies sore throat and Denies throat swelling Cardiovascular Cardiovascular: Denies chest pain, Denies irregular heart rhythm, Denies lightheadedness, Denies palpitations, Denies dyspnea, Denies dyspnea on exertion and Denies orthopnea Respiratory Respiratory: Denies cough, Denies dyspnea, Denies dyspnea on exertion and Denies wheezing Gastrointestinal Gastrointestinal: Denies abdominal pain, Denies change in bowel habits, Denies diarrhea, Denies nausea and Denies vomiting Genitourinary Genitourinary: Denies hematuria, Denies flank pain, Denies urinary incontinence and Denies urinary urgency Musculoskeletal Musculoskeletal: Denies back pain, Denies muscle weakness, Denies neck pain, Denies numbness and Denies tingling Integumentary/Breasts Skin/Breast: Denies pruritus, Denies erythema, Denies rash and Reports wounds Neurologic Neurologic: Denies behavioral changes, Denies confusion, Denies dizziness, Denies frequent falls, Denies loss of vision, Denies numbness, Denies tingling and Denies weakness Psychiatric Psychiatric: Denies anxiety, Denies behavioral changes, Denies confusion, Denies depression, Denies homicidal ideation and Denies suicidal ideation Endocrine Endocrine: Denies fatigue, Denies flushing and Denies palpitations Hematologic/Lymphatic Hematologic/Lymphatic: Denies easy bruising Allergic/Immunologic Allergic/Immunologic: Denies urticaria, Denies throat swelling and Denies wheezing Patient History <Genna Encarnacion PA-C - Last Filed: 11/10/21 20:26> Medical History Acute knee pain tobacco type: cigarettes alcohol intake frequency: holidays/special occasions only Substance Use Type: marijuana Exam <Genna Encarnacion PA-C - Last Filed: 11/10/21 20:26> Initial Vital Signs Initial Vital Signs: Vital Signs Temperature 97.8 F 11/10/21 13:47 Pulse Rate 122 H 11/10/21 13:47 Respiratory Rate 18 11/10/21 13:47 Blood Pressure 159/75 H 11/10/21 13:47 Pulse Oximetry 99 11/10/21 13:47 Const General: cooperative, healthy appearing and comfortable [facility] Head: normal to inspection Eyes General: appearance normal, both eyes and all related structures Neck Neck: normal visual inspection Resp Effort & Inspection: normal respiratory effort Auscultation: clear to auscultation bilaterally Cardio Rate: regular rate Rhythm: regular rhythm Other: Erythema, swelling, tenderness to palpation of mons pubis. No discharge visualized. Neuro General: patient alert, patient awake and patient oriented x3 Psych Appearance: grossly normal <Rayne Freeman DO - Last Filed: 11/11/21 09:18> Initial Vital Signs Initial Vital Signs: Vital Signs Temperature 97.8 F 11/10/21 13:47 Pulse Rate 122 H 11/10/21 13:47 Respiratory Rate 18 11/10/21 13:47 Blood Pressure 159/75 H 11/10/21 13:47 Pulse Oximetry 99 11/10/21 13:47 Course <Genna Encarnacion PA-C - Last Filed: 11/10/21 20:26> Orders Ordered: Discontinued Medications Morphine Sulfate (Morphine 4 Mg/Ml Inj) 4 mg IV NOW ONE Stop: 11/10/21 19:11 Last Admin: 11/10/21 19:27 Dose: 4 mg Documented by: SELIN Vital Signs Vital signs: Vital Signs - 8 hr 11/10/21 13:47 11/10/21 17:58 Temperature 97.8 F Pulse Rate 122 H 99 H Respiratory Rate 18 18 Blood Pressure 159/75 H 163/71 H Pulse Oximetry 99 99 <DO Samuel Yan Last Filed: 11/11/21 09:18> Orders Ordered: Discontinued Medications Morphine Sulfate (Morphine 4 Mg/Ml Inj) 4 mg IV NOW ONE Stop: 11/10/21 19:11 Last Admin: 11/10/21 19:27 Dose: 4 mg Documented by: SELIN Vital Signs Vital signs: Vital Signs - 8 hr 11/10/21 13:47 11/10/21 17:58 Temperature 97.8 F Pulse Rate 122 H 99 H Respiratory Rate 18 18 Blood Pressure 159/75 H 163/71 H Pulse Oximetry 99 99 MDM - Female Genitourinary <WATSON Bullock Last Filed: 11/10/21 20:26> Lab Data Lab results narrative: Labs within normal limits Result diagrams: 11/10/21 13:55 11/10/21 13:55 Labs: Lab Results 11/10/21 11/10/21 11/10/21 Range/Units 13:55 13:55 19:24 WBC 10.2 (4.5-11.0) X10^3/uL RBC 4.95 (4.0-5.2) X10^6/uL Hgb 15.0 (12.0-16.0) g/dL Hct 43.8 (36-46) % MCV 88.5 (80-100) fL MCH 30.3 (26-34) PG MCHC 34.3 (30-36) % RDW 13.1 (11.6-14.8) % Plt Count 349 (150-400) X10^3/uL Neut % (Auto) 58.3 (50-75) % Lymph % (Auto) 28.8 (25-40) % Kidder % (Auto) 7.6 (3-14) % Eos % (Auto) 4.1 H (2-4) % Baso % (Auto) 1.2 (0-2) % Neut # (Auto) 5900 (5794-7539) /uL Lymph # (Auto) 2900 (2704-4047) /uL Kidder # (Auto) 800 (0-900) /uL Eos # (Auto) 400 (0-450) /uL Baso # (Auto) 100 (0-100) /uL Sodium 142 (137-145) mmol/L Potassium 3.9 (3.4-5.1) mmol/L Chloride 107 (98-107) mmol/L Carbon Dioxide 29 (22-32) mmol/L BUN 9 (7-17) mg/dL Creatinine 0.99 (0.52-1.04) mg/dL Estimated GFR > 60.0 (>60) mL/min BUN/Creatinine Ratio 9.1 (6-22) Glucose 79 (70-100) mg/dL Calcium 9.6 (8.4-10.2) mg/dL Total Bilirubin 0.2 (0.2-1.3) mg/dL AST 32 (14-36) IU/L ALT 35 H (<35) IU/L Alkaline Phosphatase 115 (38-126) U/L Total Protein 7.0 (6.3-8.2) g/dL Albumin 4.1 (3.5-5.0) g/dL Globulin 2.9 (1.7-4.1) g/dL Albumin/Globulin Ratio 1.4 (1.0-2.8) Urine RBC 0-1/hpf (0-5/HPF) Urine WBC 0-1/hpf (0-5/HPF) Ur Squamous Epith Cells 5-10 /hpf H (0-5/HPF) Urine Bacteria Occasional (0-1) (None) Ur Culture Indicated? Cult not indicated Point of Care Testing Test Results Negative Urine Dip Bedside Urine Glucose Negative Bedside Urine Bilirubin - Negative Bedside Urine Ketone - Negative Urine Specific [place] 1.025 Bedside Urine Occult Blood +/- Bedside Urine pH 6.0 Bedside Urine Protein - Negative Bedside Urine Urobilinogen - Negative Bedside Urine Nitrite - Negative Bedside Urine Leukocytes - Negative Esterase Imaging Data CT scan - abdomen/pelvis: Radiologist's Impression: PROCEDURE:? CT ABDOMEN PELVIS W CON ? INDICATIONS:? ? abscess/cyst of mons pubis ? TECHNIQUE:? After the administration of IV contrast, axial sections were acquired from the lung bases to the pubic symphysis.? Coronal and sagittal reformats were performed.? For radiation dose reduction, the following was used:? automated exposure control, adjustment of mA and/or kV according to patient size. ? COMPARISON:? None. ? FINDINGS:? Image quality:? Excellent.? ? Lung bases:? Mild left basilar atelectasis.? Small hiatal hernia. Heart:? Normal size.? No pericardial effusion. ? ? ABDOMEN: Liver:? Normal size.? Mild hepatic steatosis.? ? Gallbladder:? Surgically removed? ? Biliary ducts:? Unremarkable.? ? Pancreas:? Unremarkable.? ? Spleen:? Normal size.? There is a 2 cm splenule in the splenic hilum.? ? Adrenal Glands:? Unremarkable.? ? Kidneys and Ureters:? Unremarkable.? ? ? Stomach and Bowel:? Stomach, small bowel loops, and colon are normal in caliber.? Appendix is absent. Peritoneum:? No abnormal intraperitoneal fluid.? No free air.? ? Ventral Wall: ? Tiny fat containing umbilical hernia.? Abdominal Nodes:? No retroperitoneal or mesenteric adenopathy by size criteria.? Vessels:? Aorta and inferior vena cava are normal in size.? ? PELVIS: Pelvic Organs:? There is an IUD in uterus.? A 2.3 x 3.2 cm cyst in the left ovary.? Right ovary is not well seen.? ? Bladder:? Unremarkable.? ? Pelvic Nodes: No enlarged lymph nodes.? Miscellaneous: No inguinal hernias are seen. ? ? ? Bones:? [id number] degenerative changes in lower thoracic spine and lumbar spine. ? IMPRESSION:? ? 1. No acute abnormalities in abdomen or pelvis. 2. No abscess is identified in perineum. 3. A 2.3 x 3.2 cm cyst in the left ovary.? Nonurgent follow-up pelvic ultrasound may be obtained if clinically indicated. 4. IUD in uterus.? Dictated by: Charissa Lee M.D. on 11/10/2021 at 19:57 ? ? Approved by: Charissa Lee M.D. on 11/10/2021 at 20:02 ? MDM Narrative Medical decision making narrative: 36-year-old female with with some mental health problems including bipolar disorder presents to the ED with 5 days of a genital wound. Concern for cellulitis versus abscess. Will order labs, CT. Will reassess. Labs, CT negative for abscess. Will treat as cellulitis. Patient prescribed cephalexin. Discussed ED return precautions, follow-up with housekeeping room inspector, PCP. Patient verbalized understanding. <Rayne Freeman, DO - Last Filed: 11/11/21 09:18> Lab Data Labs: Lab Results 11/10/21 11/10/21 11/10/21 Range/Units 13:55 13:55 19:24 WBC 10.2 (4.5-11.0) X10^3/uL RBC 4.95 (4.0-5.2) X10^6/uL Hgb 15.0 (12.0-16.0) g/dL Hct 43.8 (36-46) % MCV 88.5 (80-100) fL MCH 30.3 (26-34) PG MCHC 34.3 (30-36) % RDW 13.1 (11.6-14.8) % Plt Count 349 (150-400) X10^3/uL Neut % (Auto) 58.3 (50-75) % Lymph % (Auto) 28.8 (25-40) % Kidder % (Auto) 7.6 (3-14) % Eos % (Auto) 4.1 H (2-4) % Baso % (Auto) 1.2 (0-2) % Neut # (Auto) 5900 (7846-5062) /uL Lymph # (Auto) 2900 (9846-2406) /uL Kidder # (Auto) 800 (0-900) /uL Eos # (Auto) 400 (0-450) /uL Baso # (Auto) 100 (0-100) /uL Sodium 142 (137-145) mmol/L Potassium 3.9 (3.4-5.1) mmol/L Chloride 107 (98-107) mmol/L Carbon Dioxide 29 (22-32) mmol/L BUN 9 (7-17) mg/dL Creatinine 0.99 (0.52-1.04) mg/dL Estimated GFR > 60.0 (>60) mL/min BUN/Creatinine Ratio 9.1 (6-22) Glucose 79 (70-100) mg/dL Calcium 9.6 (8.4-10.2) mg/dL Total Bilirubin 0.2 (0.2-1.3) mg/dL AST 32 (14-36) IU/L ALT 35 H (<35) IU/L Alkaline Phosphatase 115 (38-126) U/L Total Protein 7.0 (6.3-8.2) g/dL Albumin 4.1 (3.5-5.0) g/dL Globulin 2.9 (1.7-4.1) g/dL Albumin/Globulin Ratio 1.4 (1.0-2.8) Urine RBC 0-1/hpf (0-5/HPF) Urine WBC 0-1/hpf (0-5/HPF) Ur Squamous Epith Cells 5-10 /hpf H (0-5/HPF) Urine Bacteria Occasional (0-1) (None) Ur Culture Indicated? Cult not indicated Point of Care Testing Test Results Negative Urine Dip Bedside Urine Glucose Negative Bedside Urine Bilirubin - Negative Bedside Urine Ketone - Negative Urine Specific [place] 1.025 Bedside Urine Occult Blood +/- Bedside Urine pH 6.0 Bedside Urine Protein - Negative Bedside Urine Urobilinogen - Negative Bedside Urine Nitrite - Negative Bedside Urine Leukocytes - Negative Esterase Discharge Plan Departure Patient Disposition: Home Clinical Impression: Cellulitis Instructions: DI for Cellulitis -- Adult Activity Restrictions/Additional Instructions: You were evaluated in the ED today for a genital wound. Your labs and CT were normal and did not show a cyst or abscess associated with the wound. There was a cyst of the left ovary that you canfollow-up with your mobile application developer with. However that is unrelated your symptoms today. Your wound is likely due to a skin infection called cellulitis. You have been prescribed a course of antibiotics. Please complete the full course of antibiotics. Please follow-up with your PCP or mobile application developer for further follow-up. Return to the ED if you experience worsening symptoms, fever, chills. Prescriptions: New cephalexin 500 mg capsule 500 mg PO TID 5 Days Qty: 15 0RF No Action cyclobenzaprine 10 mg tablet 10 mg PO DAILY 0RF Label Comments: TAKE 1 TABLET BY MOUTH AT BEDTIME NEEDED buspirone 5 mg tablet 5 mg PO BID 0RF Label Comments: TAKE 1 TABLET BY MOUTH TWICE DAILY aripiprazole [Abilify] 2 mg tablet 2 mg PO DAILY 0RF Label Comments: Take 1 tablet by mouth at bedtime Sachi 14 mcg/24 hrs (3 yrs) 13.5 mg intrauterine device INTRAUTERINE 0RF cyclobenzaprine 10 mg tablet 10 mg PO TID PRN (Reason: muscle spasm) Qty: 14 0RF ketorolac 10 mg tablet 10 mg PO Q6H PRN (Reason: pain) Qty: 14 0RF lamotrigine 200 mg tablet 200 mg PO DAILY 0RF Label Comments: TAKE 1 TABLET BY MOUTH AT BEDTIME citalopram 20 mg tablet 20 mg PO DAILY 0RF Label Comments: TAKE 1 AND 1/2 TABLETS BY MOUTH EVERY DAY <Rayne Freeman, - Last Filed: 11/11/21 09:18> [facility] Rosie[facility] Attestation: I was immediately available in the department for consultation. Documentation has been reviewed.
[2021-11-10 20:27] LABS: Bacteria Urine Occasional (0-1); RBC Urine 0-1/HPF (0-5/HPF); Squamous Epithelial Cell Urine 5-10 /HPF (0-5/HPF); WBC Urine 0-1/HPF (0-5/HPF)
[2021-11-10 20:28] LABS: Culture Indicated Urine Cult Not Indicated
[2021-11-10 20:29] VITALS: BP 168/71; PULSE 103; RESP 18; O2SAT 95
== END 2021-11-10 20:31 | disposition home or self-care (01) ==
PROVIDERS: Emergency Medicine; Emergency Provider Student in an Organized Health Care Education/Training Program
DX: N76.4 Abscess of vulva (principal); Z88.0 Allergy status to penicillin
CPT/HCPCS: 36415; 74177; 80053; 81003; 81015; 81025; 85025; 96374; 99284; J2270; Q9967

== ENCOUNTER 2021-12-26 17:53 | Emergency (ER) | payer OTHER, MEDICAID, SELFPAY ==
[2021-12-26 18:10] VITALS: BP 128/80; PULSE 105; RESP 18; TEMP 37; O2SAT 100; BMI 52.8
[2021-12-26 18:37] LABS: COVID19 -Nasal RAPID Negative (Negative)
[2021-12-26 18:41] LABS: Add Manual Diff / Slide Review NO; Basophils Absolute Auto 100 /uL (0-100); Basophils Percent Auto 0.9 % (0-2); Eosinophils Absolute Auto 400 /uL (0-450); Eosinophils Percent Auto 3.7 % (2-4); Hematocrit 44.9 % (36-46); Lymphocytes Absolute Auto 3700 /uL (1100-4500); Lymphocytes Percent Auto 31.4 % (25-40); Mean Corpuscular HGB Conc 33.3 % (30-36); Mean Corpuscular Hemoglobin 29.4 PG (26-34); Mean Corpuscular Volume 88.2 fL (80-100); Monocytes Absolute Auto 800 /uL (0-900); Monocytes Percent Auto 6.7 % (3-14); Neutrophils Absolute Auto 6700 /uL (1500-7000); Neutrophils Percent Auto 57.3 % (50-75); Platelet Count 325 X10^3/uL (150-400); Red Blood Cell Count 5.09 X10^6/uL (4.0-5.2); Red Cell Distribution Width 13.3 % (11.6-14.8); White Blood Cell Count 11.7 X10^3/uL (4.5-11.0)
--- NOTE | 2021-12-26 18:43 | DI.RAD.S_ITS ---
PROCEDURE: XR CHEST 1V INDICATIONS: productive cough, covid negative TECHNIQUE: One view of the chest was acquired. COMPARISON: [facility], CR, XR CHEST 2V, 06/30/2021, 17:09. FINDINGS: Surgical changes and devices: None. Lungs and pleura: Lungs are clear. There is mild elevation of the left hemidiaphragm. No pleural effusions or pneumothorax. Mediastinum: Mediastinal contours appear normal. Heart size is normal. Bones and chest wall: No suspicious bony lesions. Overlying soft tissues appear unremarkable. IMPRESSION: 1. No acute cardiopulmonary disease. Dictated by: Cody Vences M.D. on 12/26/2021 at 19:21 Approved by: Cody Vences M.D. on 12/26/2021 at 19:21
[2021-12-26 18:52] LABS: Alanine Aminotransferase 37 IU/L (<35); Albumin 4.2 g/dL (3.5-5.0); Albumin Globulin Ratio 1.4 (1.0-2.8); Alkaline Phosphatase 100 U/L (38-126); Aspartate Aminotransferase 30 IU/L (14-36); BUN Creatinine Ratio 6.8 (6-22); Bilirubin Total 0.3 mg/dL (0.2-1.3); Blood Urea Nitrogen 7 mg/dL (7-17); Calcium 9.3 mg/dL (8.4-10.2); Carbon Dioxide 30 mmol/L (22-32); Chloride 105 mmol/L (98-107); Estimated Glomerular Filt Rate > 60.0 mL/min (>60); Globulin 3.1 g/dL (1.7-4.1); Glucose 79 mg/dL (70-100); HEMOLYSIS < 15 (0-50); Lipase 212 U/L (23-300); Potassium 4.1 mmol/L (3.4-5.1); Sodium 140 mmol/L (137-145); Total Protein 7.3 g/dL (6.3-8.2)
--- NOTE | 2021-12-26 18:54 | ED_ITS ---
HPI - Nausea/Vomiting/Diarrhea <MAXIME Paz - Last Filed: 12/26/21 21:10> General Chief complaint: Nausea/Vomiting/Diarrhea Stated complaint: N/V/D, HEADACHE X7 DAYS Time Seen by Provider: 12/26/21 18:40 Mode of arrival: Ambulatory History of Present Illness HPI Narrative: 36-year-old female with history of appendectomy, cholecystectomy, anxiety and depression who presents to the emergency department complaining of nausea, vo miting, diarrhea, for 1 week with body aches, headache, sinus tenderness, coughing up green sputum for at least 2 weeks. Patient denies any shortness of breath, wheezing, fever, abdominal pain other than epigastric pain when she is vomiting, pelvic pain, flank pain, or back pain. Patient denies any history of GERD. Patient denies a recent antibiotics, denies any dysuria, changes to vaginal discharge. Patient was seen at [facility] on December 17 for headache, dizziness and tested negative for COVID. Patient states that she has just been vomiting for a few days and has been unable to keep anything down and needs rehydration. Related Data Home Medications Medication Instructions Recorded Confirmed citalopram 20 mg tablet 20 mg PO DAILY 06/09/21 06/09/21 lamotrigine 200 mg tablet 200 mg PO DAILY 06/09/21 06/09/21 aripiprazole 2 mg tablet (Abilify) 2 mg PO DAILY 07/12/21 07/12/21 buspirone 5 mg tablet 5 mg PO BID 07/12/21 07/12/21 cyclobenzaprine 10 mg tablet 10 mg PO DAILY 07/12/21 07/12/21 levonorgestrel 14 mcg/24 hrs (3 INTRAUTERINE 07/12/21 yrs) 13.5 mg intrauterine device (Sachi) Previous Rx's Medication Instructions Recorded cyclobenzaprine 10 mg tablet 10 mg PO TID PRN #14 tab 10/16/21 ketorolac 10 mg tablet 10 mg PO Q6H PRN #14 tab 10/16/21 doxycycline hyclate 100 mg capsule 100 mg PO BID 7 Days #14 cap 12/26/21 omeprazole 20 mg capsule,delayed 20 mg PO DAILY #20 cap 12/26/21 release ondansetron 4 mg disintegrating 4 mg PO Q8H PRN #10 tab 12/26/21 tablet tramadol 50 mg tablet 50 mg PO DAILY PRN #10 tab 12/26/21 Allergies Allergy/AdvReac Type Severity Reaction Status Date / Time amoxicillin Allergy Severe Anaphylaxis Verified 11/10/21 13:47 Penicillins Allergy Severe Anaphylaxis Verified 11/10/21 13:47 Review of Systems <MAXIME Paz - Last Filed: 12/26/21 21:10> Review of Systems Narrative: General: denies fever, chills, malaise, sweats, fatigue Head/Neck: Endorses headache, Denies neck pain, dizziness Eyes: denies visual changes, eye pain Cardio: denies chest pain, palpitations, edema Respiratory: denies dyspnea, cough, orthopnea GI: Endorses epigastric pain without any other abdominal pain, endorses recent nausea, vomiting, and diarrhea : denies dysuria, hematuria, urinary retention, frequency or incontinence MSK: denies joint pain, muscle weakness Skin: denies rash, itching, skin lesions or other Neuro: denies numbness, tingling Patient History <MAXIME Paz - Last Filed: 12/26/21 21:10> Medical History Acute knee pain Social History Smoking Status: Former smoker Smoking Status: Former smoker tobacco type: cigarettes alcohol intake frequency: holidays/special occasions only Substance Use Type: marijuana Exam <MAXIME Paz - Last Filed: 12/26/21 21:10> Narrative Exam Narrative: Independently reviewed vitals signs and nursing notes. General: Cooperative, comfortable, Obese, in no acute distress, well developed Head/Neck: Normal visual inspection and supple, atraumatic. Frontal and maxillary sinus tenderness with palpation, no anterior cervical lymphadenopathy Eyes: Pupils equal round and reactive, EOMI, conjunctiva normal, no scleral icterus or injections Nose: External nose normal, nares patent, no rhinorrhea, without purulent drainage Mouth/Throat: uvula midline, moist mucus membranes Cardio: Regular rate and rhythm, no peripheral edema, warm extremities Respiratory: Normal respiratory effort, able to speak in complete sentences without audible wheezing, stridor, or rales. No retractions. GI: Abdomen soft, nontender to palpation x4 quadrants, nondistended, no masses or exquisite tenderness with exam, no flank tenderness MSK: Moves all extremities, neurovascularly intact Skin: Normal capillary refill, no rash Neuro: Normal speech and cognition, normal gait, A&O x3, tone normal, moves all extremities Psych: Mental status is grossly normal, speech is clear, congruent mood, normal affect Initial Vital Signs Initial Vital Signs: Vital Signs Temperature 98.6 F 12/26/21 18:10 Pulse Rate 105 H 12/26/21 18:10 Respiratory Rate 18 12/26/21 18:10 Blood Pressure 128/80 12/26/21 18:10 Pulse Oximetry 100 12/26/21 18:10 <Bill Jimenez DO - Last Filed: 12/26/21 22:52> Initial Vital Signs Initial Vital Signs: Vital Signs Temperature 98.6 F 12/26/21 18:10 Pulse Rate 105 H 12/26/21 18:10 Respiratory Rate 18 12/26/21 18:10 Blood Pressure 128/80 12/26/21 18:10 Pulse Oximetry 100 12/26/21 18:10 Course <MAXIME Paz - Last Filed: 12/26/21 21:10> Orders Ordered: ED Orders 12/26/21 18:17 COVID19 -Nasal swab/Pre-Proc Stat 12/26/21 18:25 Complete Blood Count AUTO DIFF Stat Comprehensive Metabolic Panel Stat Lipase Stat 12/26/21 18:43 Chest [XR chest 1V] Stat EKG-12 Lead Stat 12/26/21 20:01 XR KUB Stat Discontinued Medications Acetaminophen (Acetaminophen 325 Mg Tablet) 650 mg PO NOW ONE Stop: 12/26/21 18:52 Last Admin: 12/26/21 19:10 Dose: 650 mg Documented by: HOLA Hydrocodone Bitart/Acetaminophen (Hydrocodone/Acet 5/325 Tablet) 1 tab PO NOW ONE Stop: 12/26/21 18:52 Last Admin: 12/26/21 19:20 Dose: Not Given Documented by: HOLA Hydrocodone Bitart/Acetaminophen (Hydrocodone/Acet 5/325 Tablet) 1 tab PO NOW ONE Stop: 12/26/21 19:57 Last Admin: 12/26/21 20:06 Dose: 1 tab Documented by: HOLA Al Hydrox/Mg Hydrox/Simethicone 20 ml/ Lidocaine HCl 15 ml 0 ml PO NOW ONE Stop: 12/26/21 18:52 Last Admin: 12/26/21 19:11 Dose: 20 ml Documented by: HOLA Diphenhydramine HCl (Diphenhydramine 50 Mg/Ml Vial) 25 mg IV NOW ONE Stop: 12/26/21 18:56 Last Admin: 12/26/21 19:20 Dose: Not Given Documented by: HOLA Diphenhydramine HCl (Diphenhydramine 50 Mg/Ml Vial) 25 mg IV NOW ONE Stop: 12/26/21 19:56 Last Admin: 12/26/21 20:06 Dose: 25 mg Documented by: HOLA Doxycycline Hyclate (Doxycycline Hyclate 100 Mg Tablet) 100 mg PO NOW ONE Stop: 12/26/21 20:03 Last Admin: 12/26/21 20:20 Dose: 100 mg Documented by: HOLA Sodium Chloride (Normal Saline 0.9%) 1,000 mls @ 1,000 mls/hr IV BOLUS ONE Stop: 12/26/21 19:52 Last Infusion: 12/26/21 20:12 Dose: 0 mls/hr Documented by: Admin: 12/26/21 19:12 Dose: 1,000 mls/hr Documented by: HOLA Ketorolac Tromethamine (Ketorolac 30 Mg/Ml Vial) 15 mg IV NOW ONE Stop: 12/26/21 18:56 Last Admin: 12/26/21 19:11 Dose: 15 mg Documented by: HOLA Methocarbamol (Methocarbamol 500 Mg Tablet) 500 mg PO NOW ONE Stop: 12/26/21 19:57 Last Admin: 12/26/21 20:06 Dose: 500 mg Documented by: HOLA Metoclopramide HCl (Metoclopramide 10 Mg/2 Ml Inj) 10 mg IV NOW ONE Stop: 12/26/21 19:58 Last Admin: 12/26/21 20:06 Dose: 10 mg Documented by: HOLA Ondansetron HCl (Ondansetron 4 Mg/2 Ml Inj) 4 mg IV NOW ONE Stop: 12/26/21 18:52 Last Admin: 12/26/21 19:11 Dose: 4 mg Documented by: HOLA Pantoprazole Sodium (Pantoprazole 40 Mg Vial) 20 mg IV NOW ONE Stop: 12/26/21 18:52 Last Admin: 12/26/21 19:11 Dose: 20 mg Documented by: HOLA Tramadol HCl (Tramadol 50 Mg Tablet) 50 mg PO NOW ONE Stop: 12/26/21 21:00 Last Admin: 12/26/21 21:09 Dose: 50 mg Documented by: HOLA Reevaluation(s) Reevaluation #1: Reassessed patient symptoms after IV fluids, Zofran, Toradol, GI cocktail, pantoprazole, and Tylenol. Patient states t she does not feel any better however she has not had any more emesis, she states that her headache still hurts, and her epigastrium is still just as painful as it was even though it was numb for a little while from the GI cocktail. Patient was ordered Benadryl, hydrocodone, methocarbamol, and Reglan. Patient was treated with doxycycline for her sinusitis and today it has been over 14 days Of sinus symptoms. Vital Signs Vital signs: Vital Signs - 8 hr 12/26/21 18:10 12/26/21 21:12 Temperature 98.6 F Pulse Rate 105 H 87 Respiratory Rate 18 18 Blood Pressure 128/80 117/59 L Pulse Oximetry 100 96 <Bill Jimenez DO - Last Filed: 12/26/21 22:52> Orders Ordered: ED Orders 12/26/21 18:17 COVID19 -Nasal swab/Pre-Proc Stat 12/26/21 18:25 Complete Blood Count AUTO DIFF Stat Comprehensive Metabolic Panel Stat Lipase Stat 12/26/21 18:43 Chest [XR chest 1V] Stat EKG-12 Lead Stat 12/26/21 20:01 XR KUB Stat Discontinued Medications Acetaminophen (Acetaminophen 325 Mg Tablet) 650 mg PO NOW ONE Stop: 12/26/21 18:52 Last Admin: 12/26/21 19:10 Dose: 650 mg Documented by: HOLA Hydrocodone Bitart/Acetaminophen (Hydrocodone/Acet 5/325 Tablet) 1 tab PO NOW ONE Stop: 12/26/21 18:52 Last Admin: 12/26/21 19:20 Dose: Not Given Documented by: HOLA Hydrocodone Bitart/Acetaminophen (Hydrocodone/Acet 5/325 Tablet) 1 tab PO NOW ONE Stop: 12/26/21 19:57 Last Admin: 12/26/21 20:06 Dose: 1 tab Documented by: HOLA Al Hydrox/Mg Hydrox/Simethicone 20 ml/ Lidocaine HCl 15 ml 0 ml PO NOW ONE Stop: 12/26/21 18:52 Last Admin: 12/26/21 19:11 Dose: 20 ml Documented by: HOLA Diphenhydramine HCl (Diphenhydramine 50 Mg/Ml Vial) 25 mg IV NOW ONE Stop: 12/26/21 18:56 Last Admin: 12/26/21 19:20 Dose: Not Given Documented by: HOLA Diphenhydramine HCl (Diphenhydramine 50 Mg/Ml Vial) 25 mg IV NOW ONE Stop: 12/26/21 19:56 Last Admin: 12/26/21 20:06 Dose: 25 mg Documented by: HOLA Doxycycline Hyclate (Doxycycline Hyclate 100 Mg Tablet) 100 mg PO NOW ONE Stop: 12/26/21 20:03 Last Admin: 12/26/21 20:20 Dose: 100 mg Documented by: HOLA Sodium Chloride (Normal Saline 0.9%) 1,000 mls @ 1,000 mls/hr IV BOLUS ONE Stop: 12/26/21 19:52 Last Infusion: 12/26/21 20:12 Dose: 0 mls/hr Documented by: Admin: 12/26/21 19:12 Dose: 1,000 mls/hr Documented by: HOLA Ketorolac Tromethamine (Ketorolac 30 Mg/Ml Vial) 15 mg IV NOW ONE Stop: 12/26/21 18:56 Last Admin: 12/26/21 19:11 Dose: 15 mg Documented by: HOLA Methocarbamol (Methocarbamol 500 Mg Tablet) 500 mg PO NOW ONE Stop: 12/26/21 19:57 Last Admin: 12/26/21 20:06 Dose: 500 mg Documented by: HOLA Metoclopramide HCl (Metoclopramide 10 Mg/2 Ml Inj) 10 mg IV NOW ONE Stop: 12/26/21 19:58 Last Admin: 12/26/21 20:06 Dose: 10 mg Documented by: HOLA Ondansetron HCl (Ondansetron 4 Mg/2 Ml Inj) 4 mg IV NOW ONE Stop: 12/26/21 18:52 Last Admin: 12/26/21 19:11 Dose: 4 mg Documented by: HOLA Pantoprazole Sodium (Pantoprazole 40 Mg Vial) 20 mg IV NOW ONE Stop: 12/26/21 18:52 Last Admin: 12/26/21 19:11 Dose: 20 mg Documented by: HOLA Tramadol HCl (Tramadol 50 Mg Tablet) 50 mg PO NOW ONE Stop: 12/26/21 21:00 Last Admin: 12/26/21 21:09 Dose: 50 mg Documented by: HOLA Vital Signs Vital signs: Vital Signs - 8 hr 12/26/21 18:10 12/26/21 21:12 Temperature 98.6 F Pulse Rate 105 H 87 Respiratory Rate 18 18 Blood Pressure 128/80 117/59 L Pulse Oximetry 100 96 MDM - Nausea/Vomiting/Diarrhea <Nena Flowers [facility] - Last Filed: 12/26/21 21:10> Lab Data Result diagrams: 12/26/21 18:25 12/26/21 18:25 Labs: Lab Results 12/26/21 12/26/21 12/26/21 Range/Units 18:17 18:25 18:25 WBC 11.7 H (4.5-11.0) X10^3/uL RBC 5.09 (4.0-5.2) X10^6/uL Hgb 15.0 (12.0-16.0) g/dL Hct 44.9 (36-46) % MCV 88.2 (80-100) fL MCH 29.4 (26-34) PG MCHC 33.3 (30-36) % RDW 13.3 (11.6-14.8) % Plt Count 325 (150-400) X10^3/uL Neut % (Auto) 57.3 (50-75) % Lymph % (Auto) 31.4 (25-40) % [place]ancock % (Auto) 6.7 (3-14) % Eos % (Auto) 3.7 (2-4) % Baso % (Auto) 0.9 (0-2) % Neut # (Auto) 6700 (3305-5858) /uL Lymph # (Auto) 3700 (4592-3769) /uL Hancock # (Auto) 800 (0-900) /uL Eos # (Auto) 400 (0-450) /uL Baso # (Auto) 100 (0-100) /uL Sodium 140 (137-145) mmol/L Potassium 4.1 (3.4-5.1) mmol/L Chloride 105 (98-107) mmol/L Carbon Dioxide 30 (22-32) mmol/L BUN 7 (7-17) mg/dL Creatinine 1.03 (0.52-1.04) mg/dL Estimated GFR > 60.0 (>60) mL/min BUN/Creatinine Ratio 6.8 (6-22) Glucose 79 (70-100) mg/dL Calcium 9.3 (8.4-10.2) mg/dL Total Bilirubin 0.3 (0.2-1.3) mg/dL AST 30 (14-36) IU/L ALT 37 H (<35) IU/L Alkaline Phosphatase 100 (38-126) U/L Total Protein 7.3 (6.3-8.2) g/dL Albumin 4.2 (3.5-5.0) g/dL Globulin 3.1 (1.7-4.1) g/dL Albumin/Globulin Ratio 1.4 (1.0-2.8) Lipase 212 (23-300) U/L SARS-CoV-2 (PCR) Negative (Negative) Point of Care Testing Test Results Negative Urine Dip Bedside Urine Glucose Negative Bedside Urine Bilirubin - Negative Bedside Urine Ketone - Negative Urine Specific [place] 1.010 Bedside Urine Occult Blood - Negative Bedside Urine pH 6.0 Bedside Urine Protein - Negative Bedside Urine Urobilinogen - Negative Bedside Urine Nitrite - Negative Bedside Urine Leukocytes - Negative Esterase Imaging Data Chest x-ray: Radiologist's Impression: PROCEDURE:? XR KUB ? INDICATIONS:? abd pain ? TECHNIQUE:? One view of the abdomen acquired.? ? COMPARISON:? [facility], CT, CT ABDOMEN PELVIS W [facility], 11/10/2021, 19:14. ? FINDINGS:? ? Surgical changes and devices:? Intrauterine device.? Right lower quadrant surgical clips. ?Cholecystectomy clips.? Surgical clips at the gastroesophageal junction. ? Bowel:? Bowel gas pattern is normal.? ? Soft tissues:? No suspicious abdominal calcifications.? Visualized solid organ contours appear normal in size.? ? Bones:? No suspicious bony lesions.? Chronic left posterior 11th rib fracture. ? IMPRESSION:? 1. No acute process.? ? ? Dictated by: Beau Schultz M.D. on 12/26/2021 at 20:15 ? ? Approved by: Beau Schultz M.D. on 12/26/2021 at 20:16 ? ECG Data Interpretation: EKG independently reviewed by myself And Dr. Thomas reveals normal sinus rhythm at 96 bpm with regular axis and intervals. No STEMI, ST segment changes, arrhythmia, or acute ischemic changes. MDM Narrative Medical decision making narrative: 36-year-old female with history of POTS, anxiety, depression, cholecystectomy and appendectomy presents to the emergency department with nausea vomiting and diarrhea which has been ongoing for 1 week. Patient was seen in the emergency department at [facility] on 12/17/2021 for the same. She tested negative for COVID 1 week ago, COVID PCR today is negative. Patient has had a productive cough, muscle aches, nausea, vomiting, diarrhea, and epigastric pain for 5 days. She d any fever, denies any blood in her emesis or her stool. Denies any lower abdominal pain other than her epigastrium. She is sinus tenderness on facial exam to her frontal and maxillary sinuses and states that she has had a productive cough for the last 2 weeks. This is most likely sinusitis, chest x- ray shows No acute cardiopulmonary process, KUB abdomen shows no acute process, she has an intrauterine device, right lower quadrant surgical clips, cholecystectomy clicks, surgical clips to the gastroesophageal goal junction without any evidence of bowel obstruction, bowel gas pattern is normal, visualized solid organ contours are normal size. Patient was referred to primary care to establish care for outpatient imaging and referrals as necessary. There is no acute surgical or emergent findings on her workup. Recommend close follow-up with a primary care provider Soon. Patient was given strict return precautions. Patient is appropriate and amenable to discharge home. Vital signs are stable on repeat examination is unremarkable. Patient has been informed of results. Patient has been given strict return to ER precautions for any new or worsening symptoms. Patient understands to follow up closely with outpatient providers as instructed. Patient understands plan and agrees to discharge home. All questions and concerns answered at this time. <Bill Jimenez, - Last Filed: 12/26/21 22:52> Lab Data Labs: Lab Results 03/02/1312/26/21 12/26/21 Range/Units 18:17 18:25 18:25 WBC 11.7 H (4.5-11.0) X10^3/uL RBC 5.09 (4.0-5.2) X10^6/uL Hgb 15.0 (12.0-16.0) g/dL Hct 44.9 (36-46) % MCV 88.2 (80-100) fL MCH 29.4 (26-34) PG MCHC 33.3 (30-36) % RDW 13.3 (11.6-14.8) % Plt Count 325 (150-400) X10^3/uL Neut % (Auto) 57.3 (50-75) % Lymph % (Auto) 31.4 (25-40) % [place]ancock % (Auto) 6.7 (3-14) % Eos % (Auto) 3.7 (2-4) % Baso % (Auto) 0.9 (0-2) % Neut # (Auto) 6700 (0453-5029) /uL Lymph # (Auto) 3700 (5120-6539) /uL [place]ancock # (Auto) 800 (0-900) /uL Eos # (Auto) 400 (0-450) /uL Baso # (Auto) 100 (0-100) /uL Sodium 140 (137-145) mmol/L Potassium 4.1 (3.4-5.1) mmol/L Chloride 105 (98-107) mmol/L Carbon Dioxide 30 (22-32) mmol/L BUN 7 (7-17) mg/dL Creatinine 1.03 (0.52-1.04) mg/dL Estimated GFR > 60.0 (>60) mL/min BUN/Creatinine Ratio 6.8 (6-22) Glucose 79 (70-100) mg/dL Calcium 9.3 (8.4-10.2) mg/dL Total Bilirubin 0.3 (0.2-1.3) mg/dL AST 30 (14-36) IU/L ALT 37 H (<35) IU/L Alkaline Phosphatase 100 (38-126) U/L Total Protein 7.3 (6.3-8.2) g/dL Albumin 4.2 (3.5-5.0) g/dL Globulin 3.1 (1.7-4.1) g/dL Albumin/Globulin Ratio 1.4 (1.0-2.8) Lipase 212 (23-300) U/L SARS-CoV-2 (PCR) Negative (Negative) Point of Care Testing Test Results Negative Urine Dip Bedside Urine Glucose Negative Bedside Urine Bilirubin - Negative Bedside Urine Ketone - Negative Urine Specific [place] 1.010 Bedside Urine Occult Blood - Negative Bedside Urine pH 6.0 Bedside Urine Protein - Negative Bedside Urine Urobilinogen - Negative Bedside Urine Nitrite - Negative Bedside Urine Leukocytes - Negative Esterase Discharge Plan Departure Patient Disposition: Home Clinical Impression: Acute epigastric pain, Nausea and vomiting Sinusitis Qualifiers: Sinusitis location: other Chronicity: unspecified Qualified Code(s): J32.9 - Chronic sinusitis, unspecified Instructions: Sinusitis, DI for Dehydration -- Adult, DI for Vomiting -- Adult Activity Restrictions/Additional Instructions: *You have been diagnosed with [Sinusitis, nausea and vomiting ] Please call [phone] To establish care with a new primary care provider. They can not get your referred for GI testing if needed with Gastroenterology. Please use Zofran every 8 hours as needed for nausea and vomiting. Please try and stay hydrated. Please start taking omeprazole daily in the morning on an empty stomach, use Zofran as needed for nausea and vomiting. You can use Tylenol and tramadol as needed for pain. Please do not taking ibuprofen. Benadryl can also be helpful for nausea vomiting if Zofran is not. I have given you an antibiotic for sinusitis, please pick your prescriptions up at [facility]. Please return to the emergency department for any new or worsening symptoms. I hope you feel better soon. *What to do: *Please continue to take your regular medications as directed. [x ] New medication prescriptions sent to your pharmacy: [ [facility]] [ ] New medication written as a paper prescription [ ] No new medications given *Please follow up with your primary care provider in 2-3 days, call for an appointment. Let them know you were seen in the Emergency Department and that we ask that you be seen in follow up. We will electronically transmit a record of today's note if your PCP is in our system *If you do not have a primary care provider please contact the [facility] Resource line at [phone]. They will ask some questions about your medical history and help get you set up with a doctor in the community. *Return to Emergency Department if you should have any new, worsening or concerning symptoms, such as [fever greater than 101F, chills, worsening pain, p ersistent vomiting or other bothersome symptoms] Prescriptions: New omeprazole 20 mg capsule,delayed release(DR/EC) 20 mg PO DAILY Qty: 20 0RF ondansetron 4 mg tablet,disintegrating 4 mg PO Q8H PRN (Reason: nausea and vomiting) Qty: 10 0RF doxycycline hyclate 100 mg capsule 100 mg PO BID 7 Days Qty: 14 0RF tramadol 50 mg tablet 50 mg PO DAILY PRN (Reason: pain) Qty: 10 0RF No Action cyclobenzaprine 10 mg tablet 10 mg PO DAILY 0RF Label Comments: TAKE 1 TABLET BY MOUTH AT BEDTIME NEEDED buspirone 5 mg tablet 5 mg PO BID 0RF Label Comments: TAKE 1 TABLET BY MOUTH TWICE DAILY aripiprazole [Abilify] 2 mg tablet 2 mg PO DAILY 0RF Label Comments: Take 1 tablet by mouth at bedtime Sachi 14 mcg/24 hrs (3 yrs) 13.5 mg intrauterine device INTRAUTERINE 0RF cyclobenzaprine 10 mg tablet 10 mg PO TID PRN (Reason: muscle spasm) Qty: 14 0RF ketorolac 10 mg tablet 10 mg PO Q6H PRN (Reason: pain) Qty: 14 0RF lamotrigine 200 mg tablet 200 mg PO DAILY 0RF Label Comments: TAKE 1 TABLET BY MOUTH AT BEDTIME citalopram 20 mg tablet 20 mg PO DAILY 0RF Label Comments: TAKE 1 AND 1/2 TABLETS BY MOUTH EVERY DAY <Bill Jimenez, DO - Last Filed: 12/26/21 22:52> [facility] Dr Jimenez Co-Sign Statement: I was available for consultation during this patient's emergency department visit. This chart is signed by myself for administrative purposes only. I did not have direct contact with this patient during this visit. They were seen independently by the APC.
[2021-12-26] MEDS: ACETAMINOPHEN 325 MG TABLET 650 MG PO (19:10)
[2021-12-26] MEDS: KETOROLAC 30 MG/ML VIAL 15 MG IV (19:11)
[2021-12-26] MEDS: MAG HYDROX/ALUMINUM/SIMETH SUS 20 ML, LIDOCAINE VISCOUS 2% 15 ML PO (19:11)
[2021-12-26] MEDS: PANTOPRAZOLE 40 MG VIAL 20 MG IV (19:11)
[2021-12-26] MEDS: ONDANSETRON 4 MG/2 ML INJ IV (19:11)
[2021-12-26] MEDS: SODIUM CHLORIDE 0.9% 1,000 ML 1000 ML IV (19:12)
--- NOTE | 2021-12-26 20:01 | DI.RAD.S_ITS ---
PROCEDURE: XR KUB INDICATIONS: abd pain TECHNIQUE: One view of the abdomen acquired. COMPARISON: [facility], CT, CT ABDOMEN PELVIS W CON, 11/10/2021, 19:14. FINDINGS: Surgical changes and devices: Intrauterine device. Right lower quadrant surgical clips. Cholecystectomy clips. Surgical clips at the gastroesophageal junction. Bowel: Bowel gas pattern is normal. Soft tissues: No suspicious abdominal calcifications. Visualized solid organ contours appear normal in size. Bones: No suspicious bony lesions. Chronic left posterior 11th rib fracture. IMPRESSION: 1. No acute process. Dictated by: Beau Schultz M.D. on 12/26/2021 at 20:15 Approved by: Beau Schultz M.D. on 12/26/2021 at 20:16
[2021-12-26] MEDS: METOCLOPRAMIDE 10 MG/2 ML INJ IV (20:06)
[2021-12-26] MEDS: methocarbamoL 500 MG TABLET PO (20:06)
[2021-12-26] MEDS: HYDROCODONE/ACET 5/325 TABLET 1 TAB PO (20:06)
[2021-12-26] MEDS: diphenhydrAMINE 50 MG/ML VIAL 25 MG IV (20:06)
[2021-12-26] MEDS: DOXYCYCLINE HYCLATE 100 MG TABLET PO (20:20)
[2021-12-26] MEDS: TRAMADOL 50 MG TABLET PO (21:09)
[2021-12-26 21:12] VITALS: BP 117/59; PULSE 87; RESP 18; O2SAT 96
== END 2021-12-26 21:12 | disposition home or self-care (01) ==
PROVIDERS: Emergency Medicine; Emergency Provider Nurse Practitioner Critical Care Medicine
DX: J32.8 Other chronic sinusitis (principal); R10.13 Epigastric pain; R11.2 Nausea with vomiting, unspecified; R19.7 Diarrhea, unspecified; Z20.822 Contact with and (suspected) exposure to COVID-19; Z87.891 Personal history of nicotine dependence
CPT/HCPCS: 36415; 71045; 74018; 80053; 81003; 81025; 83690; 85025; 87635; 93005; 96361; 96374; 96375; 99284; C9803; C9113; J1200; J1885; J2405; J2765

== ENCOUNTER 2022-03-30 19:45 | Emergency (ER) | payer OTHER, MEDICAID, SELFPAY ==
[2022-03-30 19:48] VITALS: BP 114/64; PULSE 93; RESP 22; TEMP 36.9; O2SAT 98; BMI 52.3
--- NOTE | 2022-03-30 19:56 | DI.RAD.S_ITS ---
PROCEDURE: XR CHEST 1V INDICATIONS: chest pain TECHNIQUE: One view of the chest was acquired. COMPARISON: [facility], CR, XR CHEST 1V, 12/26/2021, 18:49. FINDINGS: Surgical changes and devices: None. Lungs and pleura: Lungs are clear. No pleural effusions or pneumothorax. Mediastinum: Mediastinal contours appear normal. Heart size is normal. Bones and chest wall: No suspicious bony lesions. Overlying soft tissues appear unremarkable. IMPRESSION: 1. No acute cardiopulmonary disease. Dictated by: Cody Vences M.D. on 03/30/2022 at 20:39 Approved by: Cody Vences M.D. on 03/30/2022 at 20:40
[2022-03-30 20:32] LABS: Add Manual Diff / Slide Review NO; Basophils Absolute Auto 100 /uL (0-100); Basophils Percent Auto 1.2 % (0-2); Eosinophils Absolute Auto 300 /uL (0-450); Eosinophils Percent Auto 3.8 % (2-4); Hematocrit 45.2 % (36-46); Hemoglobin 15.5 g/dL (12.0-16.0); Lymphocytes Absolute Auto 2800 /uL (1100-4500); Lymphocytes Percent Auto 31.7 % (25-40); Mean Corpuscular HGB Conc 34.2 % (30-36); Mean Corpuscular Hemoglobin 30.1 PG (26-34); Mean Corpuscular Volume 88.2 fL (80-100); Monocytes Absolute Auto 600 /uL (0-900); Monocytes Percent Auto 6.7 % (3-14); Neutrophils Absolute Auto 5000 /uL (1500-7000); Neutrophils Percent Auto 56.6 % (50-75); Platelet Count 299 X10^3/uL (150-400); Red Blood Cell Count 5.13 X10^6/uL (4.0-5.2); Red Cell Distribution Width 13.9 % (11.6-14.8); White Blood Cell Count 8.9 X10^3/uL (4.5-11.0)
[2022-03-30 20:38] LABS: Alanine Aminotransferase 35 IU/L (<35); Albumin 4.1 g/dL (3.5-5.0); Albumin Globulin Ratio 1.4 (1.0-2.8); Alkaline Phosphatase 109 U/L (38-126); Aspartate Aminotransferase 38 IU/L (14-36); BUN Creatinine Ratio 13.1 (6-22); Bilirubin Total 0.3 mg/dL (0.2-1.3); Blood Urea Nitrogen 14 mg/dL (7-17); Calcium 9.3 mg/dL (8.4-10.2); Carbon Dioxide 24 mmol/L (22-32); Chloride 107 mmol/L (98-107); Creatine Kinase 63 U/L (30-135); Estimated Glomerular Filt Rate > 60 mL/min (>60); Globulin 2.9 g/dL (1.7-4.1); Glucose 107 mg/dL (70-100); HEMOLYSIS < 15 (0-50); Lipase 70 U/L (23-300); Magnesium 1.6 mg/dL (1.6-2.3); Potassium 3.9 mmol/L (3.4-5.1); Sodium 138 mmol/L (137-145)
[2022-03-30 20:49] LABS: Troponin I < 0.012 ng/mL (0.01-0.034)
[2022-03-30 20:55] LABS: Adenovirus Not Detected (Not Detect); B. parapertussis Not Detected (Not Detecte); Bordetella pertussis Not Detected (Not Detecte); Chlamydophila pneumoniae Not Detected (Not Detect); Coronavirus 229E Not Detected (Not Detect); Coronavirus HKU1 Not Detected (Not Detect); Coronavirus NL 63 Not Detected (Not Detect); Coronavirus OC43 Not Detected (Not Detect); Human Metapneumovirus Not Detected (Not Detect); Human Rhinovirus/Enterovirus Not Detected (Not Detect); Influenza A Not Detected (Not Detect); Influenza B Not Detected (Not Detect); Mycoplasma pneumoniae Not Detected (Not Detect); Parainfluenza Virus 1 Not Detected (Not Detect); Parainfluenza Virus 2 Not Detected (Not Detect); Parainfluenza Virus 3 Not Detected (Not Detect); Parainfluenza Virus 4 Not Detected (Not Detect); Respiratory Syncytial Virus Not Detected (Not Detect); SARS- CoV-2 Not Detected (Not Detecte)
--- NOTE | 2022-03-30 21:07 | ED_ITS ---
HPI - Chest Pain General Chief Complaint: Chest Pain Stated Complaint: Head and chest hurts hard time catching breath Time Seen by Provider: 03/30/22 19:59 Source: patient Mode of arrival: Wheelchair History of Present Illness HPI narrative: 36F former smoker presents with 7-10 days of nasal congestion, runny nose, sneezing, occasional sore throat and and a hacking cough. She states she has been bringing up sputum that is sometimes off colored. She states she has sharp and stabbing anterior chest pain that is been there for most of the week and is worse with deep breath, motion or palpation. There is no obvious palliation and she denies any radiation of her symptoms. She is nauseated but denies any vomiting. She has no abdominal pain, constipation or diarrhea. She denies dysuria, frequency or urgency. She has had no fever but has had the occasional chills. She has had a mild headache this seems to be worse with cough, she denies any neck pain, sudden onset, intense severity of the pain or photophobia. Related Data Home Medications Medication Instructions Recorded Confirmed citalopram 20 mg tablet 20 mg PO DAILY 06/09/21 06/09/21 lamotrigine 200 mg tablet 200 mg PO DAILY 06/09/21 06/09/21 aripiprazole 2 mg tablet (Abilify) 2 mg PO DAILY 07/12/21 07/12/21 buspirone 5 mg tablet 5 mg PO BID 07/12/21 07/12/21 cyclobenzaprine 10 mg tablet 10 mg PO DAILY 07/12/21 07/12/21 levonorgestrel 14 mcg/24 hrs (3 INTRAUTERINE 07/12/21 yrs) 13.5 mg intrauterine device (Sachi) Previous Rx's Medication Instructions Recorded cyclobenzaprine 10 mg tablet 10 mg PO TID PRN #14 tab 10/16/21 ketorolac 10 mg tablet 10 mg PO Q6H PRN #14 tab 10/16/21 omeprazole 20 mg capsule,delayed 20 mg PO DAILY #20 cap 12/26/21 release ondansetron 4 mg disintegrating 4 mg PO Q8H PRN #10 tab 12/26/21 tablet tramadol 50 mg tablet 50 mg PO DAILY PRN #10 tab 12/26/21 benzonatate 200 mg capsule 200 mg PO BID PRN #20 cap 03/31/22 doxycycline hyclate 100 mg tablet 100 mg PO BID #20 tab 03/31/22 Allergies Allergy/AdvReac Type Severity Reaction Status Date / Time amoxicillin Allergy Severe Anaphylaxis Verified 03/30/22 22:33 Penicillins Allergy Severe Anaphylaxis Verified 11/10/21 13:47 ketorolac Allergy Intermediate Hives Verified 03/30/22 22:33 naproxen Allergy Intermediate Hives Verified 03/30/22 22:15 Review of Systems Review of Systems Narrative: GENERAL: See HPI HEENT: See HPI RESPIRATORY: See HPI CARDIOVASCULAR: See HPI GASTROINTESTINAL: See HPI : Denies dysuria, frequency, incontinence, hematuria, urinary retention. MUSCULOSKELETAL: denies weakness, joint pain, or bony pain SKIN: Denies rash, skin lesions, or other NEUROLOGIC: Denies weakness, headache, numbness, change in speech, confusion, seizures, incoordination. PSYCHIATRIC: No concerning psychosocial issues. 12 point review of systems is negative except for those stated above Patient History Medical History Acute knee pain Social History Smoking Status: Former smoker Smoking Status: Former smoker tobacco type: cigarettes alcohol intake frequency: holidays/special occasions only Substance Use Type: marijuana Exam Narrative Exam Narrative: GENERAL: [36 year old patient appears stated age. Well-developed patient, in mild distress. HEAD: Atraumatic. Normocephalic. EYES: Pupils equal round and reactive. Extraocular motions intact. No scleral icterus. No injection or drainage. ENT: Nose without bleeding, purulent drainage. Throat without erythema, tonsillar hypertrophy or exudate. Airway patent. NECK: Trachea midline. Non tender, no meningeal signs. CARDIOVASCULAR: Regular rate and rhythm without murmurs, gallops, or rubs. RESPIRATORY: Minimal expiratory wheeze, deep breath with this dry cough GASTROINTESTINAL: Abdomen soft, non-tender, nondistended. EXTREMITIES: No edema or joint tenderness. BACK: Nontender without deformity or crepitance. No flank tenderness. NEURO: AOx3. SKIN: No rash or erythema of visible areas Initial Vital Signs Initial Vital Signs: Vital Signs Temperature 98.4 F 03/30/22 19:48 Pulse Rate 93 H 03/30/22 19:48 Respiratory Rate 22 03/30/22 19:48 Blood Pressure 114/64 03/30/22 19:48 Pulse Oximetry 98 03/30/22 19:48 Scores HEART Score Heart Score history: Slightly Suspicious Heart Score EKG: Normal Heart Score Age: < 45 years old Heart Score risk factors: No known risk factors Heart Score troponin: < or = to normal limit Heart Score Total: 0 Course Orders Ordered: ED Orders 03/30/22 19:56 XR chest 1V Stat EKG-12 Lead Stat 03/30/22 19:58 Respiratory Panel (Film Array) Stat 03/30/22 20:00 D Dimer Stat 03/30/22 20:10 Complete Blood Count AUTO DIFF Stat Comprehensive Metabolic Panel Stat Lipase Stat Magnesium Stat Troponin & CK Cardiac Panel Stat Discontinued Medications Albuterol (Albuterol Hfa Prepack) 1 box MISC SEEINSTR ONE Stop: 03/30/22 23:49 Last Admin: 03/30/22 23:55 Dose: 1 box Documented by: DWIGHT Albuterol/Ipratropium (Albuterol/Ipratropium 3 Ml Ampul) 3 ml INH NOW ONE Stop: 03/30/22 23:32 Last Admin: 03/30/22 23:42 Dose: 3 ml Documented by: DWIGHT Doxycycline Hyclate (Doxycycline Hyclate 100 Mg Tablet) 100 mg PO NOW ONE Stop: 03/31/22 00:02 Sodium Chloride (Normal Saline 0.9%) 1,000 mls @ 1,000 mls/hr IV BOLUS ONE Stop: 03/30/22 23:21 Last Infusion: 03/30/22 23:59 Dose: 0 mls/hr Documented by: Admin: 03/30/22 22:35 Dose: 1,000 mls/hr Documented by: SHMUEL Ketorolac Tromethamine (Ketorolac 30 Mg/Ml Vial) 15 mg IV NOW ONE Stop: 03/30/22 22:23 Last Admin: 03/30/22 22:52 Dose: Not Given Documented by: SHMUEL Ondansetron HCl (Ondansetron 4 Mg/2 Ml Inj) 4 mg IV NOW ONE Stop: 03/30/22 22:52 Last Admin: 03/30/22 22:56 Dose: 4 mg Documented by: SHMUEL Reevaluation(s) Reevaluation #1: Significant improvement after bronchodilators Vital Signs Vital signs: Vital Signs - 8 hr 03/30/22 19:48 03/30/22 22:36 03/30/22 23:00 Temperature 98.4 F Pulse Rate 93 H 89 92 H Respiratory Rate 22 20 25 H Blood Pressure 114/64 Pulse Oximetry 98 97 96 03/30/22 23:45 Temperature Pulse Rate 87 Respiratory Rate 16 Blood Pressure Pulse Oximetry 97 MDM - Chest Pain Lab Data Result diagrams: 03/30/22 20:10 03/30/22 20:10 Labs: Lab Results 03/30/22 03/30/22 03/30/22 Range/Units 19:58 20:00 20:10 WBC 8.9 (4.5-11.0) X10^3/uL RBC 5.13 (4.0-5.2) X10^6/uL Hgb 15.5 (12.0-16.0) g/dL Hct 45.2 (36-46) % MCV 88.2 (80-100) fL MCH 30.1 (26-34) PG MCHC 34.2 (30-36) % RDW 13.9 (11.6-14.8) % Plt Count 299 (150-400) X10^3/uL Neut % (Auto) 56.6 (50-75) % Lymph % (Auto) 31.7 (25-40) % [place] % (Auto) 6.7 (3-14) % Eos % (Auto) 3.8 (2-4) % Baso % (Auto) 1.2 (0-2) % Neut # (Auto) 5000 (4540-1479) /uL Lymph # (Auto) 2800 (7290-9226) /uL [place] # (Auto) 600 (0-900) /uL Eos # (Auto) 300 (0-450) /uL Baso # (Auto) 100 (0-100) /uL D-Dimer < 200 (<230) ng/mL Sodium (137-145) mmol/L Potassium (3.4-5.1) mmol/L Chloride (98-107) mmol/L Carbon Dioxide (22-32) mmol/L BUN (7-17) mg/dL Creatinine (0.52-1.04) mg/dL Estimated GFR (>60) mL/min BUN/Creatinine Ratio (6-22) Glucose (70-100) mg/dL Calcium (8.4-10.2) mg/dL Magnesium (1.6-2.3) mg/dL Total Bilirubin (0.2-1.3) mg/dL AST (14-36) IU/L ALT (<35) IU/L Alkaline Phosphatase (38-126) U/L Total Creatine Kinase (30-135) U/L CK-MB (CK-2) CK-MB (CK-2) Rel Index Troponin I (0.01-0.034) ng/mL Total Protein (6.3-8.2) g/dL Albumin (3.5-5.0) g/dL Globulin (1.7-4.1) g/dL Albumin/Globulin Ratio (1.0-2.8) Lipase (23-300) U/L Chlamy pneumoniae PCR Not detected (Not Detect) Adenovirus (PCR) Not detected (Not Detect) B. pertussis DNA (PCR) Not detected (Not Detecte) B.parapertussis DNA PCR Not detected (Not Detecte) Coronavirus OC43 (PCR) Not detected (Not Detect) Coronavirus HKU1 (PCR) Not detected (Not Detect) Coronavirus 229E (PCR) Not detected (Not Detect) SARS-CoV-2 (PCR) Not detected (Not Detecte) Coronavirus NL63 (PCR) Not detected (Not Detect) Human Metapneumovir PCR Not detected (Not Detect) Influenza Type A (PCR) Not detected (Not Detect) Influenza Type B (PCR) Not detected (Not Detect) M. pneumoniae (PCR) Not detected (Not Detect) Parainfluenza 1 (PCR) Not detected (Not Detect) Parainfluenza 2 (PCR) Not detected (Not Detect) Parainfluenza 3 (PCR) Not detected (Not Detect) Parainfluenza 4 (PCR) Not detected (Not Detect) RSV (PCR) Not detected (Not Detect) Entero/Rhino (PCR) Not detected (Not Detect) 03/30/22 Range/Units 20:10 WBC (4.5-11.0) X10^3/uL RBC (4.0-5.2) X10^6/uL Hgb (12.0-16.0) g/dL Hct (36-46) % MCV (80-100) fL MCH (26-34) PG MCHC (30-36) % RDW (11.6-14.8) % Plt Count (150-400) X10^3/uL Neut % (Auto) (50-75) % Lymph % (Auto) (25-40) % [place] % (Auto) (3-14) % Eos % (Auto) (2-4) % Baso % (Auto) (0-2) % Neut # (Auto) (2257-2522) /uL Lymph # (Auto) (5220-5095) /uL [place] # (Auto) (0-900) /uL Eos # (Auto) (0-450) /uL Baso # (Auto) (0-100) /uL D-Dimer (<230) ng/mL Sodium 138 (137-145) mmol/L Potassium 3.9 (3.4-5.1) mmol/L Chloride 107 (98-107) mmol/L Carbon Dioxide 24 (22-32) mmol/L BUN 14 (7-17) mg/dL Creatinine 1.07 H (0.52-1.04) mg/dL Estimated GFR > 60 (>60) mL/min BUN/Creatinine Ratio 13.1 (6-22) Glucose 107 H (70-100) mg/dL Calcium 9.3 (8.4-10.2) mg/dL Magnesium 1.6 (1.6-2.3) mg/dL Total Bilirubin 0.3 (0.2-1.3) mg/dL AST 38 H (14-36) IU/L ALT 35 H (<35) IU/L Alkaline Phosphatase 109 (38-126) U/L Total Creatine Kinase 63 (30-135) U/L CK-MB (CK-2) TNP CK-MB (CK-2) Rel Index TNP Troponin I < 0.012 (0.01-0.034) ng/mL Total Protein 7.0 (6.3-8.2) g/dL Albumin 4.1 (3.5-5.0) g/dL Globulin 2.9 (1.7-4.1) g/dL Albumin/Globulin Ratio 1.4 (1.0-2.8) Lipase 70 (23-300) U/L Chlamy pneumoniae PCR (Not Detect) Adenovirus (PCR) (Not Detect) B. pertussis DNA (PCR) (Not Detecte) B.parapertussis DNA PCR (Not Detecte) Coronavirus OC43 (PCR) (Not Detect) Coronavirus HKU1 (PCR) (Not Detect) Coronavirus 229E (PCR) (Not Detect) SARS-CoV-2 (PCR) (Not Detecte) Coronavirus NL63 (PCR) (Not Detect) Human Metapneumovir PCR (Not Detect) Influenza Type A (PCR) (Not Detect) Influenza Type B (PCR) (Not Detect) M. pneumoniae (PCR) (Not Detect) Parainfluenza 1 (PCR) (Not Detect) Parainfluenza 2 (PCR) (Not Detect) Parainfluenza 3 (PCR) (Not Detect) Parainfluenza 4 (PCR) (Not Detect) RSV (PCR) (Not Detect) Entero/Rhino (PCR) (Not Detect) Point of Care Testing Test Results Negative Urine Dip Bedside Urine Glucose Negative Bedside Urine Bilirubin - Negative Bedside Urine Ketone - Negative Urine Specific [place] 1.030 Bedside Urine Occult Blood - Negative Bedside Urine pH 6.0 Bedside Urine Protein - Negative Bedside Urine Urobilinogen - Negative Bedside Urine Nitrite - Negative Bedside Urine Leukocytes - Negative Esterase Imaging Data Chest x-ray: Radiologist's Impression: Heydi Cisnerosjulius Santiago??36??F??1985 ? Allergy/Adv: amoxicillin, Penicillins, ketorolac, naproxen (More??) Close Chest X-Ray (Signed) Cody Vences - 03/30/22 KUB X-Ray (Signed) Beau Schultz - 12/26/21 Chest X-Ray (Signed) Cody Vences - 12/26/21 Abdomen/Pelvis CT (Signed) Alexia Lee - 11/10/21 Chest X-Ray (Signed) Benny Mcguire - 06/30/21 Chest X-Ray (Signed) Saman Gunter - 06/09/21 Knee X-Ray (Signed) Wilber Saucedo - 05/28/21 Chest X-Ray (Signed) Cody Vences - 05/13/[address] [address] XRay Report Signed Patient: Steffany Cisneros MR#: [id number] : 1985 Acct:[id number] Age/Sex: 36 / F Date of Service: 03/30/22 Loc: ED Accession Number: [id number] ?? Procedure: XR chest 1V Ordering Provider: Josias Amaral D.O. PROCEDURE:? XR CHEST 1V ? INDICATIONS:? chest pain ? TECHNIQUE:? One view of the chest was acquired.? ? COMPARISON:? [facility], , XR CHEST 1V, 12/26/2021, 18:49. ? FINDINGS:? ? Surgical changes and devices:? None.? ? Lungs and pleura:? Lungs are clear.? No pleural effusions or pneumothorax.? ? Mediastinum:? Mediastinal contours appear normal.? Heart size is normal.? ? Bones and chest wall:? No suspicious bony lesions.? Overlying soft tissues appear unremarkable.? ? IMPRESSION:? ? 1.? No acute cardiopulmonary disease. ? ? ? Dictated by: Cody Vences M.D. on 03/30/2022 at 20:39 ? ? Approved by: Cody Vences M.D. on 03/30/2022 at 20:40 ? ECG Data Interpretation: [1958] EKG is normal sinus rhythm rate 92 and free of any signs of ischemia or ectopy. No ST segmental elevation or depression. No T wave inversions MDM Narrative Medical decision making narrative: Multiple etiologies for patient's symptoms considered including: COVID versus flew to versus cardiac ischemia versus pulmonary embolism versus atypical pneumonia versus other Multiple causes of chest pain considered including CA, PE, pneumothorax, pneumonia, aortic dissection, and pleurisy. Patient reports no radiation, no diaphoresis, no provocation with exertion, and no vomiting. EKG with no oc clusive findings, troponin negative, low heart score (0). Pulmonary embolism considered but thought unlikely given negative D-dimer. Patient with likely to have an atypical pneumonia given her constellation of symptoms, productive sputum, history of smoking, hence decision to use doxycycline. Patient's symptoms improved over duration of stay with above-stated therapies. Findings and discharge diagnosis discussed with patient/family followed by verbalization of understanding Return precautions discussed with patient/family whom verbalize understanding. Discharge Plan Departure Patient Disposition: Home Clinical Impression: Atypical pneumonia Instructions: DI for Atypical Pneumonia Activity Restrictions/Additional Instructions: *You have been diagnosed with [atypical pneumonia. As we discussed your history and physical exam as well as labs and imaging are very reassuring. There is no evidence of COVID or flu, significant infection, heart attack, blood clot. *What to do: *Please continue to take your regular medications as directed. [x ] New medication prescriptions sent to your pharmacy: [[facility] in [place]] [ ] New medication written as a paper prescription [ ] No new medications given *Please follow up with your primary care provider in 2-3 days, call for an appointment. Let them know you were seen in the Emergency Department and that we ask that you be seen in follow up. We will electronically transmit a record of today's note if your PCP is in our system *If you do not have a primary care provider please contact the [facility] Resource line at [phone]. They will ask some questions about your medical history and help get you set up with a doctor in the community. *Return to Emergency Department if you should have any new, worsening or concerning symptoms, such as [fever greater than 101 F, shaking chills, worsening pain, persistent vomiting or other bothersome symptoms] Prescriptions: New benzonatate 200 mg capsule 200 mg PO BID PRN (Reason: cough) Qty: 20 0RF doxycycline hyclate 100 mg tablet 100 mg PO BID Qty: 20 0RF No Action cyclobenzaprine 10 mg tablet 10 mg PO DAILY 0RF Label Comments: TAKE 1 TABLET BY MOUTH AT BEDTIME NEEDED buspirone 5 mg tablet 5 mg PO BID 0RF Label Comments: TAKE 1 TABLET BY MOUTH TWICE DAILY aripiprazole [Abilify] 2 mg tablet 2 mg PO DAILY 0RF Label Comments: Take 1 tablet by mouth at bedtime Sachi 14 mcg/24 hrs (3 yrs) 13.5 mg intrauterine device INTRAUTERINE 0RF cyclobenzaprine 10 mg tablet 10 mg PO TID PRN (Reason: muscle spasm) Qty: 14 0RF ketorolac 10 mg tablet 10 mg PO Q6H PRN (Reason: pain) Qty: 14 0RF omeprazole 20 mg capsule,delayed release(DR/EC) 20 mg PO DAILY Qty: 20 0RF ondansetron 4 mg tablet,disintegrating 4 mg PO Q8H PRN (Reason: nausea and vomiting) Qty: 10 0RF tramadol 50 mg tablet 50 mg PO DAILY PRN (Reason: pain) Qty: 10 0RF lamotrigine 200 mg tablet 200 mg PO DAILY 0RF Label Comments: TAKE 1 TABLET BY MOUTH AT BEDTIME citalopram 20 mg tablet 20 mg PO DAILY 0RF Label Comments: TAKE 1 AND 1/2 TABLETS BY MOUTH EVERY DAY Referrals: Yolis Webber, [facility] [Primary Care Provider] -
[2022-03-30] MEDS: SODIUM CHLORIDE 0.9% 1,000 ML 1000 ML IV (22:35)
[2022-03-30 22:36] VITALS: PULSE 89; RESP 20; O2SAT 97
[2022-03-30 22:52] LABS: D Dimer < 200 ng/mL (<230)
[2022-03-30] MEDS: ONDANSETRON 4 MG/2 ML INJ IV (22:56)
[2022-03-30 23:00] VITALS: PULSE 92; RESP 25; O2SAT 96
[2022-03-30 23:30] VITALS: PULSE 95; RESP 21; O2SAT 96
[2022-03-30] MEDS: ALBUTEROL/IPRATROPIUM 3 ML AMPUL INH (23:42)
[2022-03-30 23:45] VITALS: PULSE 87; RESP 16; O2SAT 97
[2022-03-30] MEDS: ALBUTEROL HFA PREPACK 1 BOX MISC (23:55)
[2022-03-31] VITALS: PULSE 100; RESP 25; O2SAT 95
[2022-03-31] MEDS: DOXYCYCLINE HYCLATE 100 MG TABLET PO (00:10)
[2022-03-31 00:12] VITALS: BP 158/69; PULSE 102; RESP 24; O2SAT 95
== END 2022-03-31 00:20 | disposition home or self-care (01) ==
PROVIDERS: Emergency Provider Emergency Medicine; PCP Nurse Practitioner Family
DX: J18.9 Pneumonia, unspecified organism (principal); R07.9 Chest pain, unspecified; Z20.822 Contact with and (suspected) exposure to COVID-19
CPT/HCPCS: 36415; 71045; 80053; 81003; 81025; 82550; 83690; 83735; 84484; 85025; 85379; 87633; 93005; 93010; 94640; 96374; 99284; J2405

== ENCOUNTER 2022-04-10 16:48 | Emergency (ER) | payer OTHER, MEDICAID, SELFPAY ==
[2022-04-10] VITALS (11 sets, daily range): BP systolic 140–152; BP diastolic 59–84; PULSE 111–124; RESP 19–27; TEMP 37.3; O2SAT 94–97; BMI 53.8
--- NOTE | 2022-04-10 17:23 | DI.RAD.S_ITS ---
PROCEDURE: XR CHEST 1V INDICATIONS: suspected sepsis TECHNIQUE: One view of the chest was acquired. COMPARISON: [facility], CR, XR CHEST 1V, 03/30/2022, 20:20. [facility], CR, XR CHEST 1V, 12/26/2021, 18:49. [facility], CR, XR CHEST 2 VIEWS, 04/09/2022, 9:36. FINDINGS: Surgical changes and devices: None. Lungs and pleura: Lungs are clear. No pleural effusions or pneumothorax. Mediastinum: Mediastinal contours appear normal. Heart size is normal. Bones and chest wall: No suspicious bony lesions. Overlying soft tissues appear unremarkable. IMPRESSION: No infiltrates are seen. Dictated by: Benny Mcguire M.D. on 04/10/2022 at 16:44 Approved by: Benny Mcguire M.D. on 04/10/2022 at 16:44
[2022-04-10 17:44] LABS: COVID19 -Nasal RAPID POSITIVE (Negative)
[2022-04-10] MEDS: SODIUM CHLORIDE 0.9% 1,000 ML 1000 ML IV (18:10)
[2022-04-10 18:22] LABS: Appearance Urine UA CLEAR; Bilirubin Urine UA NEGATIVE (NEGATIVE); Color Urine UA YELLOW; Glucose Urine UA NEGATIVE (Negative); Ketones Urine UA NEGATIVE (NEGATIVE); Leukocyte Esterase Urine UA NEGATIVE (NEGATIVE); Nitrite Urine UA NEGATIVE (Negative); Occult Blood Urine UA TRACE-LYSED (Negative); Protein Urine UA NEGATIVE (Negative); Specific Gravity Urine UA <=1.005 (1.000-1.035); Urobilinogen Urine UA 0.2 E.U./dL (0.2)
[2022-04-10 18:36] LABS: RBC Urine 0-1/HPF (0-5/HPF); Squamous Epithelial Cell Urine 1-5 /HPF (0-5/HPF); WBC Urine 0-1/HPF (0-5/HPF); pH Urine UA 6.5 (4.5-8.0)
[2022-04-10 18:36] LABS: Add Manual Diff / Slide Review NO; Basophils Absolute Auto 100 /uL (0-100); Basophils Percent Auto 0.9 % (0-2); Eosinophils Absolute Auto 200 /uL (0-450); Eosinophils Percent Auto 2.3 % (2-4); Hematocrit 43.5 % (36-46); Hemoglobin 15.2 g/dL (12.0-16.0); Lymphocytes Absolute Auto 600 /uL (1100-4500); Lymphocytes Percent Auto 7.7 % (25-40); Mean Corpuscular HGB Conc 34.9 % (30-36); Mean Corpuscular Hemoglobin 30.4 PG (26-34); Monocytes Absolute Auto 700 /uL (0-900); Monocytes Percent Auto 8.8 % (3-14); Neutrophils Absolute Auto 6800 /uL (1500-7000); Neutrophils Percent Auto 80.3 % (50-75); Platelet Count 281 X10^3/uL (150-400); Red Cell Distribution Width 13.1 % (11.6-14.8); White Blood Cell Count 8.4 X10^3/uL (4.5-11.0)
[2022-04-10 18:37] LABS: Bacteria Urine None Seen; Culture Indicated Urine Cult Not Indicated
[2022-04-10 18:41] LABS: Lactate (Lactic Acid) 1.9 mmol/L (0.7-2.1)
[2022-04-10 18:42] LABS: Alanine Aminotransferase 40 IU/L (<35); Albumin 4.5 g/dL (3.5-5.0); Albumin Globulin Ratio 1.5 (1.0-2.8); Alkaline Phosphatase 112 U/L (38-126); Aspartate Aminotransferase 39 IU/L (14-36); BUN Creatinine Ratio 9.5 (6-22); Bilirubin Total 0.5 mg/dL (0.2-1.3); Blood Urea Nitrogen 10 mg/dL (7-17); Calcium 9.5 mg/dL (8.4-10.2); Carbon Dioxide 21 mmol/L (22-32); Chloride 103 mmol/L (98-107); Estimated Glomerular Filt Rate > 60 mL/min (>60); Globulin 3.1 g/dL (1.7-4.1); Glucose 105 mg/dL (70-100); HEMOLYSIS < 15 (0-50); Lipase 47 U/L (23-300); Potassium 3.8 mmol/L (3.4-5.1); Sodium 135 mmol/L (137-145); Total Protein 7.6 g/dL (6.3-8.2)
[2022-04-10 18:57] LABS: Procalcitonin 0.12 ng/mL (<0.5)
[2022-04-10] MEDS: ONDANSETRON 4 MG/2 ML INJ IV (19:37)
[2022-04-10] MEDS: guaiFENesin ER 600 MG TAB PO (19:37)
[2022-04-10] MEDS: IBUPROFEN 400 MG TABLET 800 MG PO (19:37)
[2022-04-10] MEDS: ACETAMINOPHEN 325 MG TABLET 975 MG PO (19:37)
--- NOTE | 2022-04-10 19:47 | ED.URI ---
HPI - URI/Sore Throat <Nena Flowers, [facility] - Last Filed: 04/10/22 20:26> General Chief Complaint: Upper Respiratory Symptoms Stated Complaint: Headache, body aches, diarrhea Time Seen by Provider: 04/10/22 18:12 Source: patient Mode of arrival: Ambulatory History of Present Illness HPI Narrative: This is a 36-year-old obese female with history atypical pneumonia two weeks ago and completed a course of antibiotics who presents to the emergency department today for sore throat, cough, concern for COVID illness and tested positive for COVID today via PCR in the emergency department. She is COVID vaccinated times three, endorses her last vaccine was in February of 2021. She endorses exertional shortness of breath, states that she feels winded, feels chest pain and chest pressure but denies any diaphoresis, nausea vomiting, difficulty breathing, wheezing, chest tightness. Related Data Home Medications Medication Instructions Recorded Confirmed citalopram 20 mg tablet 20 mg PO DAILY 06/09/21 06/09/21 lamotrigine 200 mg tablet 200 mg PO DAILY 06/09/21 06/09/21 aripiprazole 2 mg tablet (Abilify) 2 mg PO DAILY 07/12/21 07/12/21 buspirone 5 mg tablet 5 mg PO BID 07/12/21 07/12/21 cyclobenzaprine 10 mg tablet 10 mg PO DAILY 07/12/21 07/12/21 levonorgestrel 14 mcg/24 hrs (3 intrauterine 07/12/21 yrs) 13.5 mg intrauterine device (Sachi) Previous Rx's Medication Instructions Recorded cyclobenzaprine 10 mg tablet 10 mg PO TID PRN muscle spasm #14 10/16/21 tabs ketorolac 10 mg tablet 10 mg PO Q6H PRN pain #14 tabs 10/16/21 omeprazole 20 mg capsule,delayed 20 mg PO DAILY epigastric pain #20 12/26/21 release caps ondansetron 4 mg disintegrating 4 mg PO Q8H PRN nausea and 12/26/21 tablet vomiting #10 tabs tramadol 50 mg tablet 50 mg PO DAILY PRN pain #10 tabs 12/26/21 benzonatate 200 mg capsule 200 mg PO BID PRN cough #20 caps 03/31/22 doxycycline hyclate 100 mg tablet 100 mg PO BID #20 tabs 03/31/22 benzocaine 15 mg-menthol 3.6 mg 1 selvin mucous membrane Q2H PRN pain 04/10/22 lozenges (Cepacol Sore Throat #16 ea (benzocaine-menthol)) guaifenesin 600 mg tablet, 600 mg PO BID PRN congestion #14 04/10/22 extended release 12 hr (Mucinex) tabs methocarbamol 500 mg tablet 500 mg PO BEDTIME PRN muscle aches 04/10/22 #14 tabs nirmatrelvir 300 mg (150 mg x See Rx Instructions PO .COMPLEX 04/10/22 2)-ritonavir 100 mg tablet (EUA) #30 tabs (Paxlovid 300 mg () Allergies Allergy/AdvReac Type Severity Reaction Status Date / Time amoxicillin Allergy Severe Anaphylaxis Verified 03/30/22 22:33 Penicillins Allergy Severe Anaphylaxis Verified 11/10/21 13:47 ketorolac Allergy Intermediate Hives Verified 03/30/22 22:33 naproxen Allergy Intermediate Hives Verified 03/30/22 22:15 Review of Systems <MAXIME Paz - Last Filed: 04/10/22 20:26> Review of Systems Narrative: General: Endorses fever, chills, malaise, and fatigue Head/Neck: denies headache, neck pain, dizziness, Eyes: denies visual changes, eye pain Cardio: denies chest pain, palpitations, edema Respiratory: Endorses dyspnea, exertional shortness of breath, cough, denies orthopnea GI: denies abdominal pain, nausea, vomiting, or diarrhea : denies dysuria, hematuria, urinary retention, frequency or incontinence MSK: denies joint pain, muscle weakness Skin: denies rash, itching, skin lesions or other Neuro: denies numbness, tingling Patient History <MAXIME Paz - Last Filed: 04/10/22 20:26> Medical History Acute knee pain Social History Smoking Status: Former smoker Smoking Status: Former smoker tobacco type: cigarettes alcohol intake frequency: holidays/special occasions only Substance Use Type: marijuana Exam <MAXIME Paz - Last Filed: 04/10/22 20:26> Narrative Exam Narrative: Independently reviewed vitals signs and nursing notes. General: Awake, alert, nontoxic, no cardiorespiratory distress Head/Neck: Atraumatic, neck supple Eyes: EOMI, conjunctiva normal Nose: nares patent, no rhinorrhea Mouth/Throat: moist mucus membranes, posterior pharynx without erythema or lesion Cardio: sinus tachycardia with occasional PVCs on the monitor, S1-S2, no murmur, no peripheral edema, currently febrile Respiratory: respirations unlabored without wheezing, stridor, or rales. No retractions, hypoxia, she does have mild tachypnea and exertional shortness of breath breath sounds are clear throughout all lock[place], mildly diminished in the bases likely due to her body habitus GI: Abdomen soft, obese, nontender to palpation x4 quadrants, no guarding or rebound tenderness MSK: Moves all extremities, neurovascularly intact, range of motion without deficit Skin: Normal capillary refill, no rash Neuro: Normal speech and cognition, normal gait Initial Vital Signs Initial Vital Signs: Vital Signs Temperature 99.2 F 04/10/22 17:16 Pulse Rate 119 H 04/10/22 17:16 Respiratory Rate 20 04/10/22 17:16 Blood Pressure 141/79 H 04/10/22 17:16 Pulse Oximetry 97 04/10/22 17:16 Oxygen Delivery Method 04/10/22 17:16 <Rayne Freeman DO - Last Filed: 04/12/22 12:18> Initial Vital Signs Initial Vital Signs: Vital Signs Temperature 99.2 F 04/10/22 17:16 Pulse Rate 119 H 04/10/22 17:16 Respiratory Rate 20 04/10/22 17:16 Blood Pressure 141/79 H 04/10/22 17:16 Pulse Oximetry 97 04/10/22 17:16 Oxygen Delivery Method 04/10/22 17:16 Course <MAXIME Paz - Last Filed: 04/10/22 20:26> Orders Ordered: Discontinued Medications Acetaminophen (Acetaminophen 325 Mg Tablet) 975 mg PO NOW ONE Stop: 04/10/22 18:47 Last Admin: 04/10/22 19:37 Dose: 975 mg Documented By: KP Guaifenesin (Guaifenesin Er 600 Mg Tab) 600 mg PO NOW ONE Stop: 04/10/22 18:47 Last Admin: 04/10/22 19:37 Dose: 600 mg Documented By: RONI Sodium Chloride (Normal Saline 0.9%) 1,000 mls @ 1,000 mls/hr IV BOLUS ONE Stop: 04/10/22 18:22 Last Infusion: 04/10/22 19:23 Dose: 0 mls/hr Documented By: Admin: 04/10/22 18:10 Dose: 1,000 mls/hr Documented By: BRIA Ibuprofen (Ibuprofen 400 Mg Tablet) 800 mg PO NOW ONE Stop: 04/10/22 19:07 Last Admin: 04/10/22 19:37 Dose: 800 mg Documented By: RONI Ondansetron HCl (Ondansetron 4 Mg/2 Ml Inj) 4 mg IV NOW ONE Stop: 04/10/22 18:47 Last Admin: 04/10/22 19:37 Dose: 4 mg Documented By: RONI Vital Signs Vital signs: Vital Signs - 8 hr 04/10/22 17:16 04/10/22 18:00 04/10/22 18:02 Temperature 99.2 F Pulse Rate 119 H 124 H Respiratory Rate 20 Blood Pressure 141/79 H 143/84 H Pulse Oximetry 97 96 Oxygen Delivery Method Room Air 04/10/22 18:02 04/10/22 18:30 04/10/22 18:31 Temperature Pulse Rate 124 H 119 H 121 H Respiratory Rate 27 H 23 27 H Blood Pressure Pulse Oximetry 96 95 95 Oxygen Delivery Method 04/10/22 18:31 04/10/22 19:00 04/10/22 19:01 Temperature Pulse Rate 114 H Respiratory Rate 22 Blood Pressure 152/70 H 151/81 H Pulse Oximetry 94 Oxygen Delivery Method 04/10/22 19:01 04/10/22 19:30 04/10/22 19:30 Temperature Pulse Rate 114 H 119 H Respiratory Rate 19 26 H Blood Pressure 152/70 H Pulse Oximetry 94 94 Oxygen Delivery Method 04/10/22 19:45 04/10/22 19:45 04/10/22 20:00 Temperature Pulse Rate 115 H Respiratory Rate 21 Blood Pressure 145/59 H 149/76 H Pulse Oximetry 95 Oxygen Delivery Method 04/10/22 20:00 Temperature Pulse Rate 116 H Respiratory Rate 24 Blood Pressure Pulse Oximetry 95 Oxygen Delivery Method <Rayne Freeman, - Last Filed: 04/12/22 12:18> Orders Ordered: Discontinued Medications Acetaminophen (Acetaminophen 325 Mg Tablet) 975 mg PO NOW ONE Stop: 04/10/22 18:47 Last Admin: 04/10/22 19:37 Dose: 975 mg Documented By: RONI Guaifenesin (Guaifenesin Er 600 Mg Tab) 600 mg PO NOW ONE Stop: 04/10/22 18:47 Last Admin: 04/10/22 19:37 Dose: 600 mg Documented By: RONI Sodium Chloride (Normal Saline 0.9%) 1,000 mls @ 1,000 mls/hr IV BOLUS ONE Stop: 04/10/22 18:22 Last Infusion: 04/10/22 19:23 Dose: 0 mls/hr Documented By: Admin: 04/10/22 18:10 Dose: 1,000 mls/hr Documented By: BRIA Ibuprofen (Ibuprofen 400 Mg Tablet) 800 mg PO NOW ONE Stop: 04/10/22 19:07 Last Admin: 04/10/22 19:37 Dose: 800 mg Documented By: RONI Ondansetron HCl (Ondansetron 4 Mg/2 Ml Inj) 4 mg IV NOW ONE Stop: 04/10/22 18:47 Last Admin: 04/10/22 19:37 Dose: 4 mg Documented By: RONI Vital Signs Vital signs: Vital Signs - 8 hr 04/10/22 17:16 04/10/22 18:00 04/10/22 18:02 Temperature 99.2 F Pulse Rate 119 H 124 H Respiratory Rate 20 Blood Pressure 141/79 H 143/84 H Pulse Oximetry 97 96 Oxygen Delivery Method Room Air 04/10/22 18:02 04/10/22 18:30 04/10/22 18:31 Temperature Pulse Rate 124 H 119 H 121 H Respiratory Rate 27 H 23 27 H Blood Pressure Pulse Oximetry 96 95 95 Oxygen Delivery Method 04/10/22 18:31 04/10/22 19:00 04/10/22 19:01 Temperature Pulse Rate 114 H Respiratory Rate 22 Blood Pressure 152/70 H 151/81 H Pulse Oximetry 94 Oxygen Delivery Method 04/10/22 19:01 04/10/22 19:30 04/10/22 19:30 Temperature Pulse Rate 114 H 119 H Respiratory Rate 19 26 H Blood Pressure 152/70 H Pulse Oximetry 94 94 Oxygen Delivery Method 04/10/22 19:45 04/10/22 19:45 04/10/22 20:00 Temperature Pulse Rate 115 H Respiratory Rate 21 Blood Pressure 145/59 H 149/76 H Pulse Oximetry 95 Oxygen Delivery Method 04/10/22 20:00 Temperature Pulse Rate 116 H Respiratory Rate 24 Blood Pressure Pulse Oximetry 95 Oxygen Delivery Method MDM - URI/Sore Throat <MAXIME Paz - Last Filed: 04/10/22 20:26> Lab Data Result diagrams: 04/10/22 17:55 04/10/22 17:55 Labs: Lab Results 04/10/22 04/10/22 04/10/22 Range/Units 17:25 17:40 17:55 WBC 8.4 (4.5-11.0) X10^3/uL RBC 5.00 (4.0-5.2) X10^6/uL Hgb 15.2 (12.0-16.0) g/dL Hct 43.5 (36-46) % MCV 87.0 (80-100) fL MCH 30.4 (26-34) PG MCHC 34.9 (30-36) % RDW 13.1 (11.6-14.8) % Plt Count 281 (150-400) X10^3/uL Neut % (Auto) 80.3 H (50-75) % Lymph % (Auto) 7.7 L (25-40) % Frederick % (Auto) 8.8 (3-14) % Eos % (Auto) 2.3 (2-4) % Baso % (Auto) 0.9 (0-2) % Neut # (Auto) 6800 (1905-0383) /uL Lymph # (Auto) 600 L (2987-0180) /uL Frederick # (Auto) 700 (0-900) /uL Eos # (Auto) 200 (0-450) /uL Baso # (Auto) 100 (0-100) /uL D-Dimer (<230) ng/mL Sodium (137-145) mmol/L Potassium (3.4-5.1) mmol/L Chloride (98-107) mmol/L Carbon Dioxide (22-32) mmol/L BUN (7-17) mg/dL Creatinine (0.52-1.04) mg/dL Estimated GFR (>60) mL/min BUN/Creatinine Ratio (6-22) Glucose (70-100) mg/dL Lactate (0.7-2.1) mmol/L Calcium (8.4-10.2) mg/dL Total Bilirubin (0.2-1.3) mg/dL AST (14-36) IU/L ALT (<35) IU/L Alkaline Phosphatase (38-126) U/L Total Protein (6.3-8.2) g/dL Albumin (3.5-5.0) g/dL Globulin (1.7-4.1) g/dL Albumin/Globulin Ratio (1.0-2.8) Lipase (23-300) U/L Procalcitonin (<0.5) ng/mL Urine Color Yellow Urine Appearance Clear Urine pH 6.5 (4.5-8.0) Ur Specific [place] <=1.005 (1.000-1.035) Urine Protein Negative (Negative) Urine Glucose (UA) Negative (Negative) g/dL Urine Ketones Negative (NEGATIVE) Urine Occult Blood Trace-lysed (Negative) Urine Nitrate Negative (Negative) Urine Bilirubin Negative (NEGATIVE) Urine Urobilinogen 0.2 (0.2) E.U./dL Ur Leukocyte Esterase Negative (NEGATIVE) Urine RBC 0-1/hpf (0-5/HPF) Urine WBC 0-1/hpf (0-5/HPF) Ur Squamous Epith Cells 1-5 /hpf (0-5/HPF) Urine Bacteria None seen (None) Ur Culture Indicated? Cult not indicated SARS-CoV-2 (PCR) Positive H (Negative) 04/10/22 04/10/22 04/10/22 Range/Units 17:55 17:55 17:58 WBC (4.5-11.0) X10^3/uL RBC (4.0-5.2) X10^6/uL Hgb (12.0-16.0) g/dL Hct (36-46) % MCV (80-100) fL MCH (26-34) PG MCHC (30-36) % RDW (11.6-14.8) % Plt Count (150-400) X10^3/uL Neut % (Auto) (50-75) % Lymph % (Auto) (25-40) % Frederick % (Auto) (3-14) % Eos % (Auto) (2-4) % Baso % (Auto) (0-2) % Neut # (Auto) (9228-9706) /uL Lymph # (Auto) (1182-5923) /uL Frederick # (Auto) (0-900) /uL Eos # (Auto) (0-450) /uL Baso # (Auto) (0-100) /uL D-Dimer < 200 (<230) ng/mL Sodium 135 L (137-145) mmol/L Potassium 3.8 (3.4-5.1) mmol/L Chloride 103 (98-107) mmol/L Carbon Dioxide 21 L (22-32) mmol/L BUN 10 (7-17) mg/dL Creatinine 1.05 H (0.52-1.04) mg/dL Estimated GFR > 60 (>60) mL/min BUN/Creatinine Ratio 9.5 (6-22) Glucose 105 H (70-100) mg/dL Lactate 1.9 (0.7-2.1) mmol/L Calcium 9.5 (8.4-10.2) mg/dL Total Bilirubin 0.5 (0.2-1.3) mg/dL AST 39 H (14-36) IU/L ALT 40 H (<35) IU/L Alkaline Phosphatase 112 (38-126) U/L Total Protein 7.6 (6.3-8.2) g/dL Albumin 4.5 (3.5-5.0) g/dL Globulin 3.1 (1.7-4.1) g/dL Albumin/Globulin Ratio 1.5 (1.0-2.8) Lipase 47 (23-300) U/L Procalcitonin 0.12 (<0.5) ng/mL Urine Color Urine Appearance Urine pH (4.5-8.0) Ur Specific [place] (1.000-1.035) Urine Protein (Negative) Urine Glucose (UA) (Negative) g/dL Urine Ketones (NEGATIVE) Urine Occult Blood (Negative) Urine Nitrate (Negative) Urine Bilirubin (NEGATIVE) Urine Urobilinogen (0.2) E.U./dL Ur Leukocyte Esterase (NEGATIVE) Urine RBC (0-5/HPF) Urine WBC (0-5/HPF) Ur Squamous Epith Cells (0-5/HPF) Urine Bacteria (None) Ur Culture Indicated? SARS-CoV-2 (PCR) (Negative) Imaging Data Chest x-ray: Radiologist's Impression: PROCEDURE:? XR CHEST 1V ? INDICATIONS:? suspected sepsis ? TECHNIQUE:? One view of the chest was acquired.? ? COMPARISON:? [facility], CR, XR CHEST 1V, 03/30/2022, 20:20.? [facility], CR, XR CHEST 1V, 12/26/2021, 18:49.? [facility], CR, XR CHEST 2 VIEWS, 04/09/2022, 9:36. ? FINDINGS:? ? Surgical changes and devices:? None.? ? Lungs and pleura:? Lungs are clear.? No pleural effusions or pneumothorax.? ? Mediastinum:? Mediastinal contours appear normal.? Heart size is normal.? ? Bones and chest wall:? No suspicious bony lesions.? Overlying soft tissues appear unremarkable.? IMPRESSION:? No infiltrates are seen. ? ? Dictated by: Benny Mcguire M.D. on 04/10/2022 at 16:44 ? ? Approved by: Benny Mcguire M.D. on 04/10/2022 at 16:44 ? ECG Data Interpretation: EKG independently reviewed by myself at 1805 reveals sinus tachycardia at 119 beats per minute with regular axis and intervals. Occasional PVCs. No STEMI, ST segment changes, arrhythmia, or acute ischemic changes. EKG independently reviewed by myself at 1705 and reveals sinus tachycardia at 116 beats per minute with regular axis and intervals. No STEMI, ST segment changes, arrhythmia, or acute ischemic changes. MDM Narrative Medical decision making narrative: This is a 36-year-old female department with concern for COVID illness and tested positive for COVID today with symptoms starting this morning. Patient endorses a sore throat, headache, cough, shortness of breath with exertion, she has a history of obesity, recently was treated for atypical pneumonia with antibiotics and this has resolved on x-ray. Chest x-ray today shows no pulmonary infiltrates or atelectasis. Breath sounds are clear on my exam throughout all lockett, she has mild tachypnea with a rate of 20, she was febrile likely causing her sinus tachycardia, has not had any medications prior to when she 1st received them from nursing. There is a nursing staff shortage today, patient did not get her medications for least an hour and half after they were ordered. Two EKGs were obtained as patient endorses worsening chest pain at one point time, neither of them have any ST changes, she does have occasional PVCs, no significant electrolyte abnormality on lab work, her sodium is 133 and that is only abnormal electrolyte other a glucose of 105. Her creatinine is 1.05, mildly elevated but her baseline is 1.03. GFR is over 60, urine is negative for any abnormal findings other than a trace of lysed blood, procalcitonin is 0.1 to, lipase is 47. Opted to treat patient with Paxlovid due to her tachypnea, obesity, recent pneumonia. Encourage patient to stay hydrated, treat her fever with Tylenol and ibuprofen, she is still tachycardic at discharge but remains febrile, she has had 1 L of normal saline, COVID PCR is positive, no leukocytosis, chest x-ray without infiltrate or opacity, lactate is 1.9. Encourage patient to manage her symptoms at home as best as possible, she understands to reduce her dose of BuSpar by half while taking Paxlovid, and she states that she is on the lowest dose of Abilify, encouraged her to take one dose every other day if it does not affect her mental health. No other drug reactions were found on her home medication list with Paxlovid. Patient was given methocarbamol, guaifenesin, Paxlovid and cepacol prescriptions to help treat her symptoms at home. Discussed treatment of congestion with Claritin, Flonase or other decongestants. Encouraged her to return to the emergency department if she has worsening shortness of breath, encouraged her to rest if she feels fatigued, and to not over exert herself. Her D-dimer is less than 200, low suspicion for pulmonary embolism. Patient is on day one of COVID symptoms without hypoxia, respiratory distress, dehydration, or focal exam to suggest secondary bacterial infection. Discussed CDC guidelines for quarantine, mask wearing, physical distancing, and infection prevention measures such as frequent handwashing. Discussed supportive treatments: Tylenol/Motrin as needed for pain/fever. OTC decongestant medications and/or antihistamines for symptomatic relief. Maintain adequate fluid intake. Follow-up with PCP as directed. Return to clinic/ER instructions discussed for new, not improving, or worsening symptoms. All questions answered. <Rayne Freeman DO - Last Filed: 04/12/22 12:18> Lab Data Labs: Lab Results 04/10/22 04/10/22 04/10/22 Range/Units 17:25 17:40 17:55 WBC 8.4 (4.5-11.0) X10^3/uL RBC 5.00 (4.0-5.2) X10^6/uL Hgb 15.2 (12.0-16.0) g/dL Hct 43.5 (36-46) % MCV 87.0 (80-100) fL MCH 30.4 (26-34) PG MCHC 34.9 (30-36) % RDW 13.1 (11.6-14.8) % Plt Count 281 (150-400) X10^3/uL Neut % (Auto) 80.3 H (50-75) % Lymph % (Auto) 7.7 L (25-40) % Frederick % (Auto) 8.8 (3-14) % Eos % (Auto) 2.3 (2-4) % Baso % (Auto) 0.9 (0-2) % Neut # (Auto) 6800 (0183-4172) /uL Lymph # (Auto) 600 L (0107-6632) /uL Frederick # (Auto) 700 (0-900) /uL Eos # (Auto) 200 (0-450) /uL Baso # (Auto) 100 (0-100) /uL D-Dimer (<230) ng/mL Sodium (137-145) mmol/L Potassium (3.4-5.1) mmol/L Chloride (98-107) mmol/L Carbon Dioxide (22-32) mmol/L BUN (7-17) mg/dL Creatinine (0.52-1.04) mg/dL Estimated GFR (>60) mL/min BUN/Creatinine Ratio (6-22) Glucose (70-100) mg/dL Lactate (0.7-2.1) mmol/L Calcium (8.4-10.2) mg/dL Total Bilirubin (0.2-1.3) mg/dL AST (14-36) IU/L ALT (<35) IU/L Alkaline Phosphatase (38-126) U/L Total Protein (6.3-8.2) g/dL Albumin (3.5-5.0) g/dL Globulin (1.7-4.1) g/dL Albumin/Globulin Ratio (1.0-2.8) Lipase (23-300) U/L Procalcitonin (<0.5) ng/mL Urine Color Yellow Urine Appearance Clear Urine pH 6.5 (4.5-8.0) Ur Specific [place] <=1.005 (1.000-1.035) Urine Protein Negative (Negative) Urine Glucose (UA) Negative (Negative) g/dL Urine Ketones Negative (NEGATIVE) Urine Occult Blood Trace-lysed (Negative) Urine Nitrate Negative (Negative) Urine Bilirubin Negative (NEGATIVE) Urine Urobilinogen 0.2 (0.2) E.U./dL Ur Leukocyte Esterase Negative (NEGATIVE) Urine RBC 0-1/hpf (0-5/HPF) Urine WBC 0-1/hpf (0-5/HPF) Ur Squamous Epith Cells 1-5 /hpf (0-5/HPF) Urine Bacteria None seen (None) Ur Culture Indicated? Cult not indicated SARS-CoV-2 (PCR) Positive H (Negative) 04/10/22 04/10/22 04/10/22 Range/Units 17:55 17:55 17:58 WBC (4.5-11.0) X10^3/uL RBC (4.0-5.2) X10^6/uL Hgb (12.0-16.0) g/dL Hct (36-46) % MCV (80-100) fL MCH (26-34) PG MCHC (30-36) % RDW (11.6-14.8) % Plt Count (150-400) X10^3/uL Neut % (Auto) (50-75) % Lymph % (Auto) (25-40) % Frederick % (Auto) (3-14) % Eos % (Auto) (2-4) % Baso % (Auto) (0-2) % Neut # (Auto) (5238-2762) /uL Lymph # (Auto) (9395-8014) /uL Frederick # (Auto) (0-900) /uL Eos # (Auto) (0-450) /uL Baso # (Auto) (0-100) /uL D-Dimer < 200 (<230) ng/mL Sodium 135 L (137-145) mmol/L Potassium 3.8 (3.4-5.1) mmol/L Chloride 103 (98-107) mmol/L Carbon Dioxide 21 L (22-32) mmol/L BUN 10 (7-17) mg/dL Creatinine 1.05 H (0.52-1.04) mg/dL Estimated GFR > 60 (>60) mL/min BUN/Creatinine Ratio 9.5 (6-22) Glucose 105 H (70-100) mg/dL Lactate 1.9 (0.7-2.1) mmol/L Calcium 9.5 (8.4-10.2) mg/dL Total Bilirubin 0.5 (0.2-1.3) mg/dL AST 39 H (14-36) IU/L ALT 40 H (<35) IU/L Alkaline Phosphatase 112 (38-126) U/L Total Protein 7.6 (6.3-8.2) g/dL Albumin 4.5 (3.5-5.0) g/dL Globulin 3.1 (1.7-4.1) g/dL Albumin/Globulin Ratio 1.5 (1.0-2.8) Lipase 47 (23-300) U/L Procalcitonin 0.12 (<0.5) ng/mL Urine Color Urine Appearance Urine pH (4.5-8.0) Ur Specific [place] (1.000-1.035) Urine Protein (Negative) Urine Glucose (UA) (Negative) g/dL Urine Ketones (NEGATIVE) Urine Occult Blood (Negative) Urine Nitrate (Negative) Urine Bilirubin (NEGATIVE) Urine Urobilinogen (0.2) E.U./dL Ur Leukocyte Esterase (NEGATIVE) Urine RBC (0-5/HPF) Urine WBC (0-5/HPF) Ur Squamous Epith Cells (0-5/HPF) Urine Bacteria (None) Ur Culture Indicated? SARS-CoV-2 (PCR) (Negative) Discharge Plan Departure Patient Disposition: Home Clinical Impression: COVID-19 Instructions: DI for Fever (Symptom) -- Adult, DI for COVID-19 (Suspected or Confirmed ) Activity Restrictions/Additional Instructions: *You have been diagnosed with COVID-19. Please stay hydrated, checked her temperature frequently and get it down with medications if you can. Take ibuprofen and Tylenol with plenty of water, some food, and this will help prevent any ulcer from the ibuprofen. I have sent throat lozenges, Mucinex, muscle relaxers and Paxlovid to [facility] pharmacy. Please cut your BuSpar dose in half, on the computer is says you take 5 mg twice a day, if that is so, please take 2.5 mg twice a day or 5 mg once a day. Please take methocarbamol as you need for muscle aches, use of throat lozenges as needed for the sore throat, Mucinex for productive cough, and pain and fever medicine as needed to help you feel better. There is not much to do for shortness of breath unless your oxygen level is low. Try to rest frequently, you do not have any signs of a blood clot, your heart rate is likely elevated due to your fever, and this will improve over the next hour. Please continue quarantine, take as good of care of yourself as you can, come back to the ER if you get significantly worse or cannot catch her breath. I hope that you start feeling better soon, thank you for trusting us with your care, I am sorry for the staffing shortage and delay in your medications. *What to do: *Please continue to take your regular medications as directed. [x ] New medication prescriptions sent to your pharmacy: [[facility] ] [ ] New medication written as a paper prescription [ ] No new medications given *Please follow up with your primary care provider in 2-3 days, call for an appointment. Let them know you were seen in the Emergency Department and that we asked that you be seen for follow-up. We will electronically transmit a record of today's note if your PCP is in our system *If you do not have a primary care provider please contact [phone] to establish care with one of the [facility] primary care providers. *Return to Emergency Department if you should have any new, worsening or concerning symptoms, such as [fever greater than 101F, chills, worsening pain, persistent vomiting or other bothersome symptoms] Prescriptions: New Paxlovid (EUA) 150 mg x 2- 100 mg tablet See Rx Instructions .ROUTE .COMPLEX Qty: 30 0RF Rx Instructions: take TWO 150 mg tablets of nirmatrelvir with ONE 100 mg tablet of ritonavir twice daily for 5 days. Please cut your BuSpar in half and take 2.5 mg each day while taking this medication. Please take this medication away from your other medications so that it does not interfere with your other medicines. GFR over 60, creatinine 1.05, COVID day one. methocarbamol 500 mg tablet 500 mg PO BEDTIME PRN (Reason: muscle aches) Qty: 14 0RF guaifenesin [Mucinex] 600 mg tablet extended release 12hr 600 mg PO BID PRN (Reason: congestion) Qty: 14 0RF Cepacol Sore Throat (tamra-men) 15-3.6 mg lozenge 1 selvin mucous membrane Q2H PRN (Reason: pain) Qty: 16 0RF No Action cyclobenzaprine 10 mg tablet 10 mg PO DAILY Label Comments: TAKE 1 TABLET BY MOUTH AT BEDTIME NEEDED buspirone 5 mg tablet 5 mg PO BID Label Comments: TAKE 1 TABLET BY MOUTH TWICE DAILY aripiprazole [Abilify] 2 mg tablet 2 mg PO DAILY Label Comments: Take 1 tablet by mouth at bedtime Sachi 14 mcg/24 hrs (3 yrs) 13.5 mg intrauterine device INTRAUTERINE cyclobenzaprine 10 mg tablet 10 mg PO TID PRN (Reason: muscle spasm) Qty: 14 0RF ketorolac 10 mg tablet 10 mg PO Q6H PRN (Reason: pain) Qty: 14 0RF omeprazole 20 mg capsule,delayed release(DR/EC) 20 mg PO DAILY Qty: 20 0RF ondansetron 4 mg tablet,disintegrating 4 mg PO Q8H PRN (Reason: nausea and vomiting) Qty: 10 0RF tramadol 50 mg tablet 50 mg PO DAILY PRN (Reason: pain) Qty: 10 0RF lamotrigine 200 mg tablet 200 mg PO DAILY Label Comments: TAKE 1 TABLET BY MOUTH AT BEDTIME citalopram 20 mg tablet 20 mg PO DAILY Label Comments: TAKE 1 AND 1/2 TABLETS BY MOUTH EVERY DAY benzonatate 200 mg capsule 200 mg PO BID PRN (Reason: cough) Qty: 20 0RF doxycycline hyclate 100 mg tablet 100 mg PO BID Qty: 20 0RF Referrals: Yolis Webber, KELLY, EQUIPMENT HIRE MANAGER [Primary Care Provider] - Visit Report Forms: Patient Portal/API <Rayen Freeman DO - Last Filed: 04/12/22 12:18> Cosign ED Attending Allison Attestation: I was immediately available in the department for consultation. Documentation has been reviewed.
[2022-04-10 19:52] LABS: D Dimer < 200 ng/mL (<230)
== END 2022-04-10 20:57 | disposition home or self-care (01) ==
PROVIDERS: Emergency Medicine; Emergency Provider Nurse Practitioner Critical Care Medicine; PCP Nurse Practitioner Family
DX: U07.1 COVID-19 (principal); R07.9 Chest pain, unspecified
CPT/HCPCS: 36415; 71045; 80053; 81001; 83605; 83690; 84145; 85025; 85379; 87040; 87635; 93005; 93010; 96361; 96374; 99284; C9803; J2405

== ENCOUNTER → 2022-06-18 10:38 | Outpatient (CLI) | payer OTHER, SELFPAY ==
--- NOTE | 2022-06-18 10:44 | DI.RAD.S_ITS ---
PROCEDURE: XR LUMBAR SPINE 2-3V INDICATIONS: Low back pain, unspecified TECHNIQUE: 3 views of the lumbar spine were acquired. COMPARISON: [facility], CT, CT ABDOMEN PELVIS W CON, 11/10/2021, 19:14. FINDINGS: Bones: 5 [id number] vertebrae are present. Mild right convexity curvature present centered at L1-L2. 2 mm retrolisthesis L4 on L5. Mild multilevel disc height loss and endplate spurring. Mild facet degenerative changes also present most pronounced at L5-S1. No vertebral body compression fractures. No suspicious bony lesions. Soft tissues: Overlying bowel gas pattern is normal. No suspicious soft tissue calcifications. Cholecystectomy clips are present. IMPRESSION: Mild multilevel degenerative changes of the lumbar spine. Dictated by: Claus López M.D. on 06/19/2022 at 20:53 Approved by: Claus López M.D. on 06/19/2022 at 20:57
--- NOTE | 2022-06-18 10:44 | DI.RAD.S_ITS ---
PROCEDURE: XR CERVICAL SPINE 2V OR 3V INDICATIONS: Low back pain, unspecified TECHNIQUE: 3 view(s) of the cervical spine were acquired. COMPARISON: None. FINDINGS: Bones: No fractures or dislocations to the C6-C7 level. The lateral masses of C1 appear intact on the odontoid view. No suspicious bony lesions. Straightening of the normal cervical lordosis, a finding which can be seen in the setting of muscle strain and/or spasm. Moderate multilevel disc height loss, mild endplate spurring and facet degenerative changes. Soft tissues: No prevertebral soft tissue swelling. IMPRESSION: Moderate multilevel degenerative changes of the cervical spine. Dictated by: Claus López M.D. on 06/19/2022 at 20:48 Approved by: Claus López M.D. on 06/19/2022 at 20:53
== END ==
PROVIDERS: PCP Nurse Practitioner Family; Referring Provider Internal Medicine Cardiovascular Disease; Visit Provider Internal Medicine Cardiovascular Disease
DX: M54.2 Cervicalgia (principal); M54.50 Low back pain, unspecified; M47.812 Spondylosis without myelopathy or radiculopathy, cervical region; M47.816 Spondylosis without myelopathy or radiculopathy, lumbar region; M47.817 Spondylosis without myelopathy or radiculopathy, lumbosacral region
CPT/HCPCS: 72040; 72100